=== PATIENT | female | born 1945 ===

== ENCOUNTER 2017-08-11 02:30 | Inpatient (IN) | payer OTHER ==
[2017-08-11] VITALS (14 sets, daily range): BP systolic 117–149; BP diastolic 63–86; PULSE 85–105; TEMP 36.9–38.1; O2SAT 89–100; Ht 157.5 cm; Wt 71.0 kg
[~2017-08-11] VITALS: Ht 157.5 cm; Wt 71.0 kg
[2017-08-11] MEDS ORDERED: ONDANSETRON INJ 2 MG/ML 2 ML VIAL IV PRN (05:30)
[2017-08-11] MEDS ORDERED: POLYETHYLENE (MIRALAX) 17 GM PACK PO PRN (05:30)
[2017-08-11] MEDS ORDERED: ALUMINUM/MAGNESIUM/SIMETH (MAALOX MAX) 30 ML UDC PO PRN (05:30)
[2017-08-11] MEDS ORDERED: ACETAMINOPHEN 325 MG TAB PO PRN (05:30)
[2017-08-11] MEDS ORDERED: MAGNESIUM HYDROXIDE SUSP 30 ML UDC PO PRN (05:30)
[2017-08-11] MEDS ORDERED: NITROGLYCERIN 0.4 MG SL PER TAB CHARGE SL PRN (05:30)
--- NOTE | 2017-08-11 05:32 | History and Physical ---
History & Physical Date & Time of Service: Aug 11, 2017 at 05:32 Chief Complaint: Pneumonia,Sirs Primary Care Physician: No Doctor, Assigned History of Present Illness Source: patient This is a 72 y/o F with multiple comorbidities who presents as a transfer from [facility] for sepsis 2/2 pneumonia. The patient is unable to provide history as she has waxing and waning levels of consciousness. She is not oriented. Chart review from [facility] reveals that patient presented for Dyspnea vial ALS that started this morning. Has accompanying cough, fever and wheezing. I did speak to the daughter over the phone who provided some history. She did say that her mother was initially complaining that there was something wrong with her heart. She gave her nebulizer treatments and she seemed to do okay for a few hours. By the evening, she found her unresponsive in her room and called ALS. Daughter reports that she takes clonipine. At [facility] she was given naloxone and put on bipap after which she was slightly more responsive but not enough to provide any meaningful history. She was also given IV fluids, Nebulizer treatment, Rocephin. She was transferred to [facility] due to lack of bed availability. Reports that her mother smokes a PPD and has a medical history that includes COPD, AAA, CAD s/p CABG, GERD, PUD etc. Pertinent Blood work at [facility]: WBC- 11.9 normal h/h Lactate - 2.9 Cr - 1.8 GFR 29 normal INR normal U/a Drug screen +'ve for barbiturates Flu negative normal troponin tsh- 1.07 Social History Smoking Status: Unknown if Ever Smoked Smokeless Tobacco Use: Unknown Allergies Coded Allergies: Methadone (Verified Allergy, Unknown, ., 08/11/17) Morphine (Verified Allergy, Unknown, ., 08/11/17) Oxycodone (Verified Allergy, Unknown, ., 08/11/17) Ziprasidone (Verified Allergy, Unknown, ., 08/11/17) Home Medications Scheduled Albuterol Hfa (Ventolin Hfa), 2-4 PUFFS INH Q6H Aspirin (Aspirin 81), DAILY Fluticasone Prop/Salmeterol (Advair Diskus 100/50 60 Dose), 1 PUFFS INH BID Gabapentin (Neurontin), 400 MG PO QID Lansoprazole (Prevacid), 30 MG PO DAILY Metoprolol Succ (Toprol Xl) (Toprol-Xl), 25 MG PO DAILY Paroxetine (Paxil), 60 MG PO DAILY Simvastatin (Zocor), 1 TAB PO DAILY Scheduled PRN Zolpidem Tartrate (Zolpidem Tartrate), 1 TAB PO HS PRN for Sleep Miscellaneous Medications Albuterol (Ventolin), 4 MG PO Gzwnztm-Ctlkgohidxhus-Xynaevmx (Excedrin Migraine) Lisinopril (Prinivil), 10 MG PO Review of Systems ROS unobtainable Physical Exam General Appearance: + mild distress, + pertinent finding (awakes to verbal and painful stimuli but doesn't provide meaningful history) Eyes: PERRL, EOMI ENT: hearing grossly normal Neck: no adenopathy, no JVD Respiratory/Chest: + respiratory distress, + rhonchi, + wheezing Cardiovascular: regular rate, rhythm, no edema Abdomen/GI: normal bowel sounds, non tender, soft Extremities/Musculoskelatal: no calf tenderness Neurologic/Psych: + disoriented Diagnostics Laboratory Results Results Past 24 Hours Test 08/11/17 05:24 Range/Units Impression Assessment and Plan This is a 72 y/o F who presents with COPD exacerbation 2/2 pneumonia COPD exacerbation 2/2 pneumonia, sirs IV Rocephin DuoNeb, Advair Solu-medrol 125 and then 80 mg q8 labs pending X-ray pending BC/SC pending CAD s/p CABG, HTN Aspirin, metoprolol, lisinopril, zocor Neuropathy Gabapentin Insomnia Zolpidem DVT Proph Lovenox Code Full - per daughter. Resident Physician Supervision Note: Pt evaluated independently. I discussed the case with the resident and agree with the findings and plan as documented in the note. Any exceptions or clarifications are listed here: 72 y/o F COPD, CAD, heavy smoker - questionable dementia - presenting from [facility] due to bed overflow - diagnosed with PNM and possible COPD exacerbation. She was apparently unresponsive when EMS arrived at her house and responded to a dose of Narcan although there is no recorded history of opiate abuse OE She appears confused and is slow to answer questions S1,2 R Poor air entry into RLL - generally poor air movement NT, ND minimal B/L edema P: We will treat for PNM and presumed COPD exacerbation based on clinical exam Her baseline mentation is unclear and she may have a degree of delirium rather than underlying dementia She will remain on ASA, B jarred and Statin reg her CAD history Pts daughter was contacted on admission Documented By: Tesfaye Au VTE Prophylaxis VTE Risk Assessment Done? Y/N: Yes Risk Level: Moderate
[2017-08-11] MEDS ORDERED: SODIUM CHLORIDE 0.9% 1000ML 1,000 ML IV SCH (06:00)
[2017-08-11] MEDS ORDERED: GABA1CAP5 PO (06:06)
[2017-08-11] MEDS ORDERED: SIMV20TA2 PO (06:06)
[2017-08-11] MEDS ORDERED: ADVIN10/60 INH (06:06)
[2017-08-11] MEDS ORDERED: ALBU4TAB10 PO (06:06)
[2017-08-11] MEDS ORDERED: ASPI-435 (06:06)
[2017-08-11] MEDS ORDERED: ZOLP10TA6 PO (06:06)
[2017-08-11] MEDS ORDERED: PARO1TAB29 PO (06:06)
[2017-08-11] MEDS ORDERED: ASPI-390 (06:06)
[2017-08-11] MEDS ORDERED: LISI10TA PO (06:06)
[2017-08-11] MEDS ORDERED: METO25TA3 PO (06:06)
[2017-08-11] MEDS ORDERED: VNTHFA/IN INH (06:06)
[2017-08-11] MEDS ORDERED: LANS30CA12 PO (06:06)
[2017-08-11 06:23] LABS: BASO % 0.1 %; BASO ABS # 0.02 K/uL (0-0.2); COMPLETE YES; HEMATOCRIT 33.2 % (37-47); IG% 1.1 %; LYMPH % 8.6 %; LYMPH ABS # 1.38 K/uL (1.2-3.4); MEAN CELL VOLUME 98.8 fL (80-100); MEAN CORPUSCULAR HEMOGLOBIN 31.8 pg (25-34); MEAN CORPUSCULAR HGB CONC 32.2 g/dl (32-36); MONO % 7.2 %; PLATELET COUNT 167 K/uL (130-400); RED BLOOD COUNT 3.36 M/uL (4.2-5.4); WHITE BLOOD COUNT 16.07 K/uL (4.8-10.8)
[2017-08-11 06:28] LABS: ARTERIAL BLD GAS O2 SATURATION 98.9 % (90-95); ARTERIAL BLOOD GAS HCO3 25 mmol/L (19-24); ARTERIAL BLOOD GAS PO2 151 mm/Hg (80-95); ARTERIAL BLOOD GAS pH 7.43 (7.35-7.45)
[2017-08-11 06:29] LABS: ALLEN TEST POS (POS); O2 ADMINISTRATION 6L
[2017-08-11] MEDS ORDERED: ZOLPIDEM TARTRATE 10 MG TAB PO PRN (06:30)
[2017-08-11] MEDS ORDERED: INFLUENZA VIRUS QUAD VACCINE 0.5 ML SYR IM. ONE (07:00)
[2017-08-11] MEDS ORDERED: PNEUMOCOCCAL POLYSACCHARIDES 25 MCG/0.5 ML VIAL/SYR IM. ONE (07:00)
[2017-08-11] MEDS ORDERED: INFLUENZA ADMINISTRATION CHARGE ONE (07:00)
[2017-08-11] MEDS ORDERED: PNEUMOCOCCAL ADMINISTRATION CHARGE ONE (07:00)
[2017-08-11 07:02] LABS: BUN/CREATININE RATIO 14.8 (10-20); CALCIUM 8.4 mg/dl (8.5-10.1); CREATININE 1.26 mg/dl (0.60-1.20)
[2017-08-11 07:10] LABS: ALB/GLOB RATIO 0.7 (0.9-2)
[2017-08-11] MEDS ORDERED: METHYLPREDNISOLONE IV 125 MG in SYRINGE 0 ML IV SCH (07:15)
[2017-08-11] MEDS: PAROXETINE 20 MG TAB PO SCH (07:22)
[2017-08-11] MEDS: FLUTICASONE/SALMETEROL 100/50 (ADVAIR) 14 PUFF/1 INHALER INH SCH ×2 (07:22→20:47)
[2017-08-11] MEDS: PANTOprazole SOD 40 MG TAB PO SCH (07:22)
[2017-08-11] MEDS: GABAPENTIN 400 MG CAP PO SCH ×4 (07:22→20:48)
[2017-08-11] MEDS: ASPIRIN 81 MG ECTAB PO SCH (07:22)
[2017-08-11] MEDS: LISINOPRIL 10 MG TAB PO SCH (07:23)
[2017-08-11] MEDS: METOPROLOL SUCC 25MG EXT REL TAB PO SCH (07:23)
[2017-08-11] MEDS: SIMVASTATIN 20 MG TAB PO SCH (07:23)
[2017-08-11] MEDS: ALBUT/IPRATROP 3MG/0.5MG NEB 3 ML VIAL INH SCH ×4 (07:32→19:28)
--- NOTE | 2017-08-11 07:32 | DIAGNOSTIC IMAGING REPORT ---
CHEST ONE VIEW PORTABLE CLINICAL HISTORY: dyspnea COMPARISON STUDY: No previous studies for comparison. FINDINGS: There are postsurgical changes of a midline sternotomy. As a left subclavian dual-chamber central venous pacemaker present. There is diffuse elevation of the interstitium. While likely secondary to pulmonary vascular congestion, chronic interstitial lung disease or an acute interstitial inflammatory process could appear similar.[ IMPRESSION: 1. Diffuse elevation of the interstitium. Clinical correlation in regards to congestive failure is recommended. Electronically signed by: Tyson Hazel M.D. 08/11/2017 7:31 AM Dictated Date/Time: 08/11/2017 7:30 AM
[2017-08-11 07:40] LABS: PROTHROMBIN TIME (PATIENT) 10.7 SECONDS (9.0-12.0)
[2017-08-11] MEDS ORDERED: OPTIRAY 320 IV PRN (08:15)
[2017-08-11] MEDS: ENOXAPARIN 40 MG/0.4 ML SYR SQ SCH (09:03)
--- NOTE | 2017-08-11 09:48 | DIAGNOSTIC IMAGING REPORT ---
ANGIO ABD/PELVIS WITH CONTRAST CLINICAL HISTORY: 72 years-old Female presents with acute generalized abdominal pain and back pain. Concern for possible abdominal aortic aneurysm. COMPARISON STUDY: Chest radiograph of same day TECHNIQUE: Following the IV administration of 93 cc of Optiray 320, CT angiogram of the abdomen and pelvis was performed from the lung bases the proximal femora. Images are reviewed in the axial, sagittal, and coronal planes. 3-D MIPS images are created and assessed. IV contrast was administered without complication. A dose lowering technique was utilized adhering to the principles of ALARA. CT DOSE: 662.39 mGy.cm FINDINGS: CTA: Moderate multichamber cardiac enlargement. Pacer leads are seen overlying the right atrium and right ventricle. Prior median sternotomy. Extensive coronary arterial disease. Dilation of the main pulmonary artery suggests pulmonary arterial hypertension. The imaged ascending thoracic aorta appears unremarkable. There is tortuosity and moderate mixed plaquing of the descending thoracic aorta. There is extensive mixed plaquing of the abdominal aorta and proximal branch vessels. Fusiform infrarenal abdominal aortic aneurysm measures up to 5.9 x 5.5 cm in AP and transverse dimension for a craniocaudal length of 10.4 cm extending to level of the iliac bifurcation. There is fusiform dilation of the right common iliac artery, 1.9 cm with usual dilation of the left common iliac artery measuring 1.8 cm. No evidence of abdominal aortic aneurysm rupture or dissection. Extensive atherosclerosis of the iliac vasculature is noted with areas of high-grade luminal narrowing involving the left external iliac artery as seen on image 319 series 2. High-grade stenosis involves the right internal iliac artery, image 340 series 2. There is occlusion of the right superficial femoral artery at its origin, image 449 series 2. Imaged common femoral and left superficial femoral arteries are patent. Moderate narrowing involves the imaged left superficial femoral artery secondary to mixed plaquing. There is prominent mixed plaquing at the origin of the celiac trunk and origin of the superior mesenteric artery causing less than 50% stenosis. Extensive atherosclerosis involving the bilateral renal arteries is noted with a right renal arterial stent in place which appears patent. Stenosis at the origin of the left renal artery causes 50% luminal narrowing. Stenosis at the origin of the mesenteric artery appears to be at least 50%. CT ABDOMEN/PELVIS: Multifocal patchy groundglass opacities of the imaged lung bases with a thin-walled cyst of the left lower lobe measuring 3.0 x 2.6 cm. Additional scattered thin-walled cysts are noted throughout the bilateral lungs. No pneumatosis or pneumoperitoneum identified. Prior cholecystectomy. Heterogeneous enhancement of the spleen likely secondary to arterial phase. No perisplenic inflammatory change. Pancreas demonstrates calcifications of the uncinate process suggesting prior pancreatitis. Mild chronic atrophy. Adrenal glands are within normal limits. 2.8 cm low attenuating lesion of the interpolar left kidney suggests renal cyst. There is of probable thinning and scarring noted throughout the left kidney. Nonspecific perinephric stranding. Narvaez catheter is noted within a collapsed or bladder. Uterus is unremarkable. No bulky adenopathy identified. Small sliding-type hiatal hernia. There is no bowel obstruction. Extensive stool burden of the rectum and distal sigmoid with stool ball in the rectal vault measuring up to 8 cm transversely. Mild rectal wall thickening is noted with surrounding inflammatory stranding. There is mild wall thickening of the mid transverse colon circumferentially without significant inflammatory stranding. No evidence of acute appendicitis. Prior ventral abdominal wall herniorrhaphy with diastases recti. Mild diffuse body wall edema. The bones appear mildly demineralized. Multilevel degenerative changes of the spine. IMPRESSION: 1. Fusiform aneurysmal dilation of the infrarenal abdominal aorta measures up to 5.9 x 5.5 cm for a craniocaudal length of 10.4 cm extending to level of the iliac bifurcation. Mild fusiform dilation also involves the bilateral common iliac arteries. No evidence of aneurysm rupture or dissection. 2. Extensive atherosclerosis as above with occlusion at the origin of the right superficial femoral artery. Areas of high-grade luminal narrowing are seen within the left external iliac and right internal iliac arteries. 3. Patent right renal arterial stent graft. 50% luminal narrowing of the proximal left renal artery secondary to atheromatous plaquing. 4. Cardiomegaly with patchy groundglass opacities of the lung bases suggesting alveolar pulmonary edema and/or pneumonitis. 5. Fecal impaction with large stool ball in the rectal vault. Rectal wall thickening with surrounding inflammatory stranding suggests stercoral proctitis. Wall thickening of the mid transverse colon suspicious for possible mild colitis. 6. Suggested pulmonary arterial hypertension. 7. Additional findings as above. The above report was generated using voice recognition software. It may contain grammatical, syntax or spelling errors. Electronically signed by: Rod Lantigua M.D. 08/11/2017 9:47 AM Dictated Date/Time: 08/11/2017 9:23 AM
[2017-08-11] MEDS ORDERED: MILK AND MOLASSES ENEMA PR ONE (11:15)
--- NOTE | 2017-08-11 11:27 | Family Medicine Progress Note ---
Progress Note Date of Service Aug 11, 2017. Subjective Pt evaluation today including: conversation w/ patient, physical exam, chart review, review of studies, conversation w/ change consultant, review of inpatient medication list Pain: mild abdominal pain PO Intake: good Voiding: ramirez catheter in place Patient feeling better this morning and is still mildly delirous and has trouble answering questions She was complaining of abdominal pain that radiated to her back. She has not had a bowel movement in a few days and she says she has a history of a AAA. I ordered a stat CT abdomen and pelvis to rule out AAA rupture. Constitutional: + weakness, No fever, No chills, No sweats Respiratory: + cough, + sputum, + wheezing, No shortness of breath Cardiovascular: No chest pain, No edema, No palpitations Abdomen: + pain, + constipation, No nausea, No vomiting, No diarrhea Musculoskeletal: + joint pain, + muscle pain Neurologic: + weakness Medications Current Inpatient Medications Medications (Trade) Dose Ordered Sig/Farhana Route Start Time Stop Time Status Last Admin Dose Admin Sodium Chloride 1,000 ml @ 75 mls/hr [id number] IV 08/11/17 06:00 09/10/17 05:59 08/11/17 06:26 75 MLS/HR Acetaminophen (Tylenol Tab) 650 mg Q4H PRN PO 08/11/17 05:30 09/10/17 05:29 08/11/17 07:32 650 MG Al Hydrox/Mg Hydrox/Simethicone (Maalox Max Susp) 15 ml Q4H PRN PO 08/11/17 05:30 09/10/17 05:29 Magnesium Hydroxide (Milk Of Magnesia Susp) 30 ml Q12H PRN PO 08/11/17 05:30 09/10/17 05:29 Ondansetron HCl (Zofran Inj) 4 mg Q6H PRN IV 08/11/17 05:30 09/10/17 05:29 Nitroglycerin (Nitrostat Tab) 0.4 mg UD PRN SL 08/11/17 05:30 09/10/17 05:29 Polyethylene (Miralax Powder Packet) 17 gm DAILY PRN PO 08/11/17 05:30 09/10/17 05:29 Albuterol/ Ipratropium (Duoneb) 3 ml QIDR INH 08/11/17 08:00 09/10/17 07:59 08/11/17 11:09 3 ML Ceftriaxone Sodium 2000 mg/ Dextrose 70 ml @ 100 mls/hr Q24H IV 08/11/17 19:00 08/18/17 18:59 Aspirin (Ecotrin Tab) 81 mg DAILY PO 08/11/17 09:00 09/10/17 08:59 Salmeterol Xinafoate/ Fluticasone (Advair Diskus 100/50 Inh) 2 puff BID INH 08/11/17 09:00 09/10/17 08:59 Gabapentin (Neurontin Cap) 400 mg QID PO 08/11/17 09:00 09/10/17 08:59 Lisinopril (Zestril Tab) 10 mg DAILY PO 08/11/17 09:00 09/10/17 08:59 Metoprolol Succinate (Toprol Xl Tab) 25 mg DAILY PO 08/11/17 09:00 09/10/17 08:59 Paroxetine HCl (pAXil TAB) 60 mg DAILY PO 08/11/17 09:00 09/10/17 08:59 Simvastatin (Zocor Tab) 20 mg DAILY PO 08/11/17 09:00 09/10/17 08:59 Zolpidem Tartrate (Ambien Tab) 10 mg HS PRN PO 08/11/17 06:30 09/10/17 06:29 Pantoprazole Sodium (Protonix Tab) 40 mg QAM PO 08/11/17 09:00 09/10/17 08:59 Methylprednisolone Sodium Succinate 80 mg/Syringe 1.28 ml @ 1.5 mls/min Q8H IV 08/11/17 14:00 09/10/17 13:59 Enoxaparin Sodium (Lovenox Inj) 40 mg QAM SQ 08/11/17 09:00 09/10/17 08:59 08/11/17 09:03 40 MG Ioversol (Optiray 320) 100 ml UD PRN IV 08/11/17 08:15 08/15/17 08:14 Azithromycin 500 mg/Dextrose 255 ml @ 125 mls/hr 1130 ONCE IV 08/11/17 11:30 08/11/17 13:32 Azithromycin 250 mg/Dextrose 252.5 ml @ 125 mls/hr DAILY IV 08/12/17 09:00 08/19/17 08:59 Miscellaneous Medication (Milk And Molasses Enema) 1 ea ONE ONCE SC 08/11/17 11:15 08/11/17 11:16 UNV Objective Vital Signs Date Time Temp Pulse Resp B/P (MAP) Pulse Ox O2 Delivery O2 Flow Rate FiO2 08/11/17 11:11 88 18 95 Nasal Cannula 3.0 08/11/17 10:46 37.1 85 20 128/74 (92) 99 Nasal Cannula 3.0 08/11/17 09:23 95 127/71 (89) 99 Nasal Cannula 4.0 08/11/17 08:37 36.9 93 117/69 (85) 08/11/17 08:00 Nasal Cannula 4.0 08/11/17 07:34 94 14 100 Mask 6.0 08/11/17 07:32 38.1 99 124/86 (99) 96 Oxymask 6.0 08/11/17 06:18 Nasal Cannula 5.0 Physical Exam General Appearance: WD/WN, no apparent distress, + pertinent finding ( disheveled) Eyes: PERRL ENT: hearing grossly normal, pharynx normal Neck: supple, no JVD, no carotid bruits, trachea midline Respiratory/Chest: + wheezing (diffuse wheezing and poor air movement bilaterally), + pertinent finding (sternotomy scar) Cardiovascular: regular rate, rhythm, no edema, no murmur Abdomen: normal bowel sounds, soft, + tenderness (mild umbilical and suprapubic tenderness, no rebound or guarding), + pertinent finding (AA can be felt in abdomen, non expansatile) Extremities: non-tender, no pedal edema, normal capillary refill Neurologic/Psychiatric: + disoriented Laboratory Results Results Past 24 Hours Test 08/11/17 06:05 08/11/17 06:17 08/11/17 07:11 08/11/17 08:42 Range/Units White Blood Count 16.07 4.8-10.8 K/uL Red Blood Count 3.36 4.2-5.4 M/uL Hemoglobin 10.7 12.0-16.0 g/dL Hematocrit 33.2 37-47 % Mean Corpuscular Volume 98.8 80-100 fL Mean Corpuscular Hemoglobin 31.8 25-34 pg Mean Corpuscular Hemoglobin Concent 32.2 32-36 g/dl Platelet Count 167 130-400 K/uL Mean Platelet Volume 11.0 7.4-10.4 fL Neutrophils (%) (Auto) 83.0 % Lymphocytes (%) (Auto) 8.6 % Monocytes (%) (Auto) 7.2 % Eosinophils (%) (Auto) 0.0 % Basophils (%) (Auto) 0.1 % Neutrophils # (Auto) 13.33 1.4-6.5 K/uL Lymphocytes # (Auto) 1.38 1.2-3.4 K/uL Monocytes # (Auto) 1.16 0.11-0.59 K/uL Eosinophils # (Auto) 0.00 0-0.5 K/uL Basophils # (Auto) 0.02 0-0.2 K/uL RDW Standard Deviation 50.4 36.4-46.3 fL RDW Coefficient of Variation 14.2 11.5-14.5 % Immature Granulocyte % (Auto) 1.1 % Immature Granulocyte # (Auto) 0.18 0.00-0.02 K/uL Sodium Level 136 136-145 mmol/L Potassium Level 5.0 3.5-5.1 mmol/L Chloride Level 105 98-107 mmol/L Carbon Dioxide Level 26 21-32 mmol/L Anion Gap 5.0 3-11 mmol/L Blood Urea Nitrogen 19 7-18 mg/dl Creatinine 1.26 0.60-1.20 mg/dl Est Creatinine Clear Calc Drug Dose 37.1 ml/min Estimated GFR () 48.9 Estimated GFR (Non- 42.2 BUN/Creatinine Ratio 14.8 10-20 Random Glucose 90 70-99 mg/dl Lactic Acid Level 2.5 0.4-2.0 mmol/L Calcium Level 8.4 8.5-10.1 mg/dl Total Bilirubin 0.4 0.2-1 mg/dl Aspartate Amino Transf (AST/SGOT) 25 15-37 U/L Alanine Aminotransferase (ALT/SGPT) 11 12-78 U/L Alkaline Phosphatase 70 45-117 U/L Troponin I 0.628 0-0.045 ng/ml Total Protein 6.3 6.4-8.2 gm/dl Albumin 2.5 3.4-5.0 gm/dl Globulin 3.8 2.5-4.0 gm/dl Albumin/Globulin Ratio 0.7 0.9-2 Arterial Blood pH 7.43 7.35-7.45 Arterial Blood Partial Pressure CO2 39 35-46 mmHg Arterial Blood Partial Pressure O2 151 80-95 mm/Hg Arterial Blood HCO3 25 19-24 mmol/L Arterial Blood Oxygen Saturation 98.9 90-95 % Arterial Blood Base Excess 1.0 -9-1.8 mEq/L Arterial Blood Gas Delivery 6L Nhan Test POS POS Prothrombin Time 10.7 9.0-12.0 SECONDS Prothromb Time International Ratio 1.0 0.9-1.1 Microbiology Results 08/11/17 Blood Culture, Received Pending 08/11/17 Blood Culture, Received Pending 08/11/17 Gram Stain, Ordered Pending 08/11/17 Sputum Culture, Ordered Pending Assessment and Plan This is a 72 y/o F who has sepsis secondary to bilateral interstitial pneumonia COPD exacerbation 2/2 pneumonia, sirs IV Rocephin and added IV azithromycin for atypical coverage DuoNeb, Advair Solu-medrol 125 and then 80 mg q8 Lactic acid 2.5 this morning ABG without hypercapnea CXR showed increased interstitial markings - likely infectious Blood culture and sputum culture pending Fusiform abdominal aneurysm AAA 5.9 x 5.4 cm Hemodynamically stable will obtain records from [facility] Constipation large fecal ball in rectal vault likely contributing to patient abdominal pain milk of mollasses enema CAD s/p CABG, HTN Aspirin, metoprolol, lisinopril, zocor trop 0.628 and trending at 2pm echo ordered patient does not appear to be clinically fluid overloaded IVF on hold currently for concern of fluid overload, will await result of echo before restarting Neuropathy Gabapentin Insomnia Zolpidem DVT Proph Lovenox Code Full per daughter. Resident Physician Supervision Note: I was present with PGY2 Dr. George Sinha during the history and exam. I discussed the case with the resident and agree with the findings and plan as documented in the note. Any exceptions or clarifications are listed here: pt has sepsis not SIRS. Pt c/o cough, wheezing. Mild abdominal pain. Thought it was Tuesday during our visit. Can't remember when last bowel movement was. VSS but febrile thru the night o2 sats stable gen - sickly, but nontoxic and not in distress neck - no JVD mouth - MMM heart - RRR, s1, s2, 2/6 MIGUEL LSB lungs - wheezes b/l, scant rales bases abd - soft, minimal tenderness suprapubic region ext - no edema lactate 2.5 Cr 1.2 CBC w/ leukocytosis A/P: 1. sepsis 2nd to pneumonia 2. metabolic encephalopathy 2nd to #1 3. acute kidney injury 2nd to #1 4. COPD w/ exacerbation 5. abdominal pain - with negative CTA of abd/pelvis the fecal impaction is likely cause 6. AAA - stable, no rupture or dissection add zithromax for atypical coverage for #1 enema for #5 steroids, rocephin, nebs serial labs PT, OT Documented By: Suresh Vincent MD Continued [facility] stay due to: multiple IV medications needed Discharge planning: uncertain
[2017-08-11] MEDS ORDERED: AZITHROMYCIN IV 500 MG in DEXTROSE 5% 250ML 250 ML IV ONE (11:30)
[2017-08-11] MEDS: METHYLPREDNISOLONE IV 80 MG in SYRINGE 0 ML IV SCH ×2 (12:28→21:59)
[2017-08-11] MEDS ORDERED: NURSING VERBAL MED ORDER ONE (15:00)
--- NOTE | 2017-08-11 17:56 | ECHOCARDIOGRAM REPORT ---
*NOTICE TO RECEIVING [employer]PUBL[employer] AGENCY This information is strictly Confidential and protected under [place] law. [place] law prohibits you from making any further disclosure of this information unless further disclosure is expressly permitted by the written consent of the person to whom it pertains or is authorized by law. A general authorization for the release of medical or other information is not sufficient for this purpose. Hospital accepts no responsibility if the information is made available to any other person, INCLUDING THE PATIENT. Interpretation Summary * Name: TYLER RODRÍGUEZ Study Date: 08/11/2017 02:19 PM BP: 128/74 mmHg * Patient Location: C.2T\S\S241\S\1 HR: 90 * : 1945 (M/d/yyyy) Gender: Female Height: 62 in * Age: 72 yrs Ethnicity: ND Weight: 159 lb * Ordering Physician: George Sinha * Referring Physician: Mckay Ortez * Performed By: Anika Hernandez RCS * * Reason For Study: ELEVATED TROPONIN / INCREASED INTERSTITIAL FLUID * BSA: 1.7 m2 * -- Conclusions -- * There is mild concentric left ventricular hypertrophy. * Left ventricular systolic function is normal. * Diastolic dysfunction, Grade II (pseudonormalization pattern). * The left atrium is severely dilated. * Mild aortic regurgitation. * Right ventricular systolic pressure is elevated at 40-50mmHg. * The inferior vena cava is mildly dilated. Procedure Details * A complete two-dimensional transthoracic echocardiogram was performed (2D, M-mode, Doppler and color flow Doppler). Left Ventricle * The left ventricle is normal in size. * There is mild concentric left ventricular hypertrophy. * Left ventricular systolic function is normal. * Ejection Fraction = 60-65%. * Diastolic dysfunction, Grade II (pseudonormalization pattern). * The left ventricular wall motion is normal. Right Ventricle * The right ventricle is normal in size and function. Atria * The left atrium is severely dilated. * Right atrial size is normal. * Echodensity suggestive of pacing lead versus calcified Chiari network work Mitral Valve * The mitral valve anatomy is normal. * Significant mitral regurgitation is absent. Tricuspid Valve * The tricuspid valve is not well visualized, but is grossly normal. * There is mild tricuspid regurgitation. * Right ventricular systolic pressure is elevated at 40-50mmHg. Aortic Valve * The aortic valve is normal in structure and function. * No hemodynamically significant valvular aortic stenosis. * Mild aortic regurgitation. Great Vessels * The aortic root is normal size. Pericardium/Pleural * There is no pericardial effusion. Great Vessels * The inferior vena cava is mildly dilated. MMode 2D Measurements and Calculations IVSd 1.6 cm IVSs 1.9 cm LVIDd 4.0 cm LVIDs 2.5 cm LVPWd 1.5 cm LVPWs 1.8 cm IVS/LVPW 1.1 FS 37.1 % EDV(Teich) 70.5 ml ESV(Teich) 22.9 ml EF(Teich) 67.6 % EDV(cubed) 64.5 ml ESV(cubed) 16.1 ml EF(cubed) 75.1 % % IVS thick 18.4 % % LVPW thick 24.7 % LV mass(C)d 240.0 grams LV mass(C)dI 138.4 grams/m\S\2 LV mass(C)s 188.2 grams LV mass(C)sI 108.5 grams/m\S\2 SV(Teich) 47.6 ml SI(Teich) 27.5 ml/m\S\2 SV(cubed) 48.5 ml SI(cubed) 27.9 ml/m\S\2 Ao root diam 2.8 cm Ao root area 6.3 cm\S\2 LA dimension 5.8 cm LA/Ao 2.0 LVOT diam 2.0 cm LVOT area 3.3 cm\S\2 LVAd ap4 30.2 cm\S\2 LVLd ap4 7.5 cm EDV(MOD-sp4) 97.9 ml EDV(sp4-el) 102.7 ml LVAs ap4 17.8 cm\S\2 LVLs ap4 6.5 cm ESV(MOD-sp4) 42.2 ml ESV(sp4-el) 41.5 ml EF(MOD-sp4) 56.9 % EF(sp4-el) 59.6 % LVAd ap2 27.4 cm\S\2 LVLd ap2 7.2 cm EDV(MOD-sp2) 83.8 ml EDV(sp2-el) 88.9 ml LVAs ap2 18.4 cm\S\2 LVLs ap2 6.5 cm ESV(MOD-sp2) 45.6 ml ESV(sp2-el) 44.5 ml EF(MOD-sp2) 45.6 % EF(sp2-el) 49.9 % LVLd %diff -4.63 % EDV(MOD-bp) 91.3 ml LVLs %diff -0.19 % ESV(MOD-bp) 43.4 ml EF(MOD-bp) 52.4 % SV(MOD-sp4) 55.8 ml SI(MOD-sp4) 32.2 ml/m\S\2 SV(MOD-sp2) 38.2 ml SI(MOD-sp2) 22.0 ml/m\S\2 SV(MOD-bp) 47.9 ml SI(MOD-bp) 27.6 ml/m\S\2 SV(sp4-el) 61.2 ml SI(sp4-el) 35.3 ml/m\S\2 SV(sp2-el) 44.4 ml SI(sp2-el) 25.6 ml/m\S\2 Doppler Measurements and Calculations MV E max yoan 125.6 cm/sec MV A max yoan 93.3 cm/sec MV E/A 1.3 MV P1/2t max yoan 132.0 cm/sec MV P1/2t 48.4 msec MVA(P1/2t) 4.5 cm\S\2 MV dec slope 798.7 cm/sec\S\2 MV dec time 0.18 sec Ao V2 max 226.0 cm/sec Ao max PG 20.4 mmHg Ao max PG (full) 9.8 mmHg EDITH(V,A) 2.4 cm\S\2 EDITH(V,D) 2.4 cm\S\2 LV V1 max PG 10.6 mmHg LV V1 max 162.8 cm/sec PA V2 max 96.6 cm/sec PA max PG 3.7 mmHg PI max yoan 206.2 cm/sec PI max PG 17.0 mmHg PI dec slope 164.8 cm/sec\S\2 PI P1/2t 366.6 msec TR max yoan 281.0 cm/sec
[2017-08-11] MEDS: CEFTRIAXONE SOD INJ 2,000 MG in DEXTROSE 5% 50ML 50 ML IV SCH (18:45)
[2017-08-11 22:10] LABS: INFLUENZA A PCR Neg for Influ A (NEG); INFLUENZA B PCR Neg for Influ B (NEG)
[2017-08-12] VITALS (13 sets, daily range): BP systolic 156–178; BP diastolic 76–92; PULSE 79–97; TEMP 36.8–37.1; O2SAT 93–100
[2017-08-12] MEDS: METHYLPREDNISOLONE IV 80 MG in SYRINGE 0 ML IV SCH ×3 (06:27→21:55)
[2017-08-12 06:32] LABS: COMPLETE YES; HEMATOCRIT 32.5 % (37-47); IG% 0.3 %; LYMPH % 6.8 %; LYMPH ABS # 0.91 K/uL (1.2-3.4); MEAN CELL VOLUME 97.3 fL (80-100); MEAN CORPUSCULAR HEMOGLOBIN 32.6 pg (25-34); MEAN CORPUSCULAR HGB CONC 33.5 g/dl (32-36); MEAN PLATELET VOLUME 10.9 fL (7.4-10.4); MONO % 3.4 %; NEUT % 89.5 %; PLATELET COUNT 181 K/uL (130-400); RED BLOOD COUNT 3.34 M/uL (4.2-5.4); WHITE BLOOD COUNT 13.39 K/uL (4.8-10.8)
[2017-08-12] MEDS: ALBUT/IPRATROP 3MG/0.5MG NEB 3 ML VIAL INH SCH ×4 (06:59→19:04)
[2017-08-12 07:03] LABS: BUN/CREATININE RATIO 24.1 (10-20); CALCIUM 9.2 mg/dl (8.5-10.1); CREATININE 1.04 mg/dl (0.60-1.20); POTASSIUM 4.4 mmol/L (3.5-5.1)
[2017-08-12 07:06] LABS: ALB/GLOB RATIO 0.6 (0.9-2)
[2017-08-12] MEDS: LISINOPRIL 10 MG TAB PO SCH (08:06)
[2017-08-12] MEDS: FLUTICASONE/SALMETEROL 100/50 (ADVAIR) 14 PUFF/1 INHALER INH SCH ×2 (08:06→19:57)
[2017-08-12] MEDS: PAROXETINE 20 MG TAB PO SCH (08:07)
[2017-08-12] MEDS: ASPIRIN 81 MG ECTAB PO SCH (08:07)
[2017-08-12] MEDS: METOPROLOL SUCC 25MG EXT REL TAB PO SCH (08:07)
[2017-08-12] MEDS: PANTOprazole SOD 40 MG TAB PO SCH (08:07)
[2017-08-12] MEDS: GABAPENTIN 400 MG CAP PO SCH ×4 (08:08→19:57)
[2017-08-12] MEDS: SIMVASTATIN 20 MG TAB PO SCH (08:08)
[2017-08-12] MEDS: ENOXAPARIN 40 MG/0.4 ML SYR SQ SCH (08:09)
[2017-08-12] MEDS: AZITHROMYCIN IV 250 MG in DEXTROSE 5% 250ML 250 ML IV SCH (08:12)
--- NOTE | 2017-08-12 08:54 | Family Medicine Progress Note ---
Progress Note Date of Service Aug 12, 2017. Subjective Pt evaluation today including: conversation w/ patient Patient opens eyes and communicates but does not know where or who she is. Denies have a BM yesterday though received an enema and passed stool twice. Additional Comments: Unable to obtain ROS due to altered mental status Medications Current Inpatient Medications Medications (Trade) Dose Ordered Sig/Farhana Route Start Time Stop Time Status Last Admin Dose Admin Sodium Chloride 1,000 ml @ 75 mls/hr [id number] IV 08/11/17 06:00 09/10/17 05:59 Future Hold 08/11/17 06:26 75 MLS/HR Acetaminophen (Tylenol Tab) 650 mg Q4H PRN PO 08/11/17 05:30 09/10/17 05:29 08/11/17 07:32 650 MG Al Hydrox/Mg Hydrox/Simethicone (Maalox Max Susp) 15 ml Q4H PRN PO 08/11/17 05:30 09/10/17 05:29 Magnesium Hydroxide (Milk Of Magnesia Susp) 30 ml Q12H PRN PO 08/11/17 05:30 09/10/17 05:29 Ondansetron HCl (Zofran Inj) 4 mg Q6H PRN IV 08/11/17 05:30 09/10/17 05:29 Nitroglycerin (Nitrostat Tab) 0.4 mg UD PRN SL 08/11/17 05:30 09/10/17 05:29 Polyethylene (Miralax Powder Packet) 17 gm DAILY PRN PO 08/11/17 05:30 09/10/17 05:29 Albuterol/ Ipratropium (Duoneb) 3 ml QIDR INH 08/11/17 08:00 09/10/17 07:59 08/12/17 06:59 3 ML Ceftriaxone Sodium 2000 mg/ Dextrose 70 ml @ 100 mls/hr Q24H IV 08/11/17 19:00 08/18/17 18:59 08/11/17 18:45 100 MLS/HR Aspirin (Ecotrin Tab) 81 mg DAILY PO 08/11/17 09:00 09/10/17 08:59 08/12/17 08:07 81 MG Salmeterol Xinafoate/ Fluticasone (Advair Diskus 100/50 Inh) 2 puff BID INH 08/11/17 09:00 09/10/17 08:59 08/12/17 08:06 2 PUFF Gabapentin (Neurontin Cap) 400 mg QID PO 08/11/17 09:00 09/10/17 08:59 08/12/17 08:08 400 MG Lisinopril (Zestril Tab) 10 mg DAILY PO 08/11/17 09:00 09/10/17 08:59 08/12/17 08:06 10 MG Metoprolol Succinate (Toprol Xl Tab) 25 mg DAILY PO 08/11/17 09:00 09/10/17 08:59 08/12/17 08:07 25 MG Paroxetine HCl (pAXil TAB) 60 mg DAILY PO 08/11/17 09:00 09/10/17 08:59 08/12/17 08:07 60 MG Simvastatin (Zocor Tab) 20 mg DAILY PO 08/11/17 09:00 09/10/17 08:59 08/12/17 08:08 20 MG Zolpidem Tartrate (Ambien Tab) 10 mg HS PRN PO 08/11/17 06:30 09/10/17 06:29 Pantoprazole Sodium (Protonix Tab) 40 mg QAM PO 08/11/17 09:00 09/10/17 08:59 08/12/17 08:07 40 MG Methylprednisolone Sodium Succinate 80 mg/Syringe 1.28 ml @ 1.5 mls/min Q8H IV 08/11/17 14:00 09/10/17 13:59 08/12/17 06:27 1.5 MLS/MIN Enoxaparin Sodium (Lovenox Inj) 40 mg QAM SQ 08/11/17 09:00 09/10/17 08:59 08/12/17 08:09 40 MG Ioversol (Optiray 320) 100 ml UD PRN IV 08/11/17 08:15 08/15/17 08:14 Azithromycin 250 mg/Dextrose 252.5 ml @ 125 mls/hr DAILY IV 08/12/17 09:00 08/19/17 08:59 08/12/17 08:12 125 MLS/HR Objective Vital Signs Date Time Temp Pulse Resp B/P (MAP) Pulse Ox O2 Delivery O2 Flow Rate FiO2 08/12/17 08:15 37.0 91 19 173/89 (117) 96 Nasal Cannula 2.0 08/12/17 08:00 95 Nasal Cannula 2.0 08/12/17 06:59 82 16 95 Nasal Cannula 2.0 08/12/17 03:00 96 Nasal Cannula 3.0 08/12/17 02:59 36.9 93 19 156/79 (104) 96 Nasal Cannula 2.0 08/11/17 23:31 36.9 93 20 131/69 (89) 96 Nasal Cannula 2.0 08/11/17 23:30 94 Nasal Cannula 3.0 08/11/17 20:00 96 Nasal Cannula 3.0 08/11/17 19:45 37.0 105 19 118/63 (81) 96 Nasal Cannula 2.0 08/11/17 19:29 93 16 89 Room Air 08/11/17 16:00 100 Nasal Cannula 3.0 08/11/17 15:16 87 16 100 Nasal Cannula 3.0 08/11/17 15:10 37.0 88 16 149/70 (96) 100 Nasal Cannula 3.0 08/11/17 12:00 Nasal Cannula 4.0 08/11/17 11:11 88 18 95 Nasal Cannula 3.0 08/11/17 10:46 37.1 85 20 128/74 (92) 99 Nasal Cannula 3.0 08/11/17 09:23 95 127/71 (89) 99 Nasal Cannula 4.0 Physical Exam General Appearance: WD/WN, no apparent distress, + thin Eyes: normal inspection, PERRL, + pertinent finding (large pupils) ENT: hearing grossly normal Neck: supple, no JVD Respiratory/Chest: lungs clear, normal breath sounds, no respiratory distress Cardiovascular: regular rate, rhythm, no murmur Abdomen: normal bowel sounds, non tender, soft Extremities: non-tender, normal inspection, no pedal edema Neurologic/Psychiatric: alert, + disoriented Skin: no rash Laboratory Results Last 24 Hours Test 08/11/17 14:08 08/11/17 20:30 08/12/17 06:23 Troponin I 0.298 ng/ml Influenza Type A (RT-PCR) Neg for Influ A Influenza Type A Antigen Neg for Influ A Influenza Type B Antigen Neg for Influ B Influenza Type B (RT-PCR) Neg for Influ B White Blood Count 13.39 K/uL Red Blood Count 3.34 M/uL Hemoglobin 10.9 g/dL Hematocrit 32.5 % Mean Corpuscular Volume 97.3 fL Mean Corpuscular Hemoglobin 32.6 pg Mean Corpuscular Hemoglobin Concent 33.5 g/dl Platelet Count 181 K/uL Mean Platelet Volume 10.9 fL Neutrophils (%) (Auto) 89.5 % Lymphocytes (%) (Auto) 6.8 % Monocytes (%) (Auto) 3.4 % Eosinophils (%) (Auto) 0.0 % Basophils (%) (Auto) 0.0 % Neutrophils # (Auto) 11.98 K/uL Lymphocytes # (Auto) 0.91 K/uL Monocytes # (Auto) 0.46 K/uL Eosinophils # (Auto) 0.00 K/uL Basophils # (Auto) 0.00 K/uL RDW Standard Deviation 50.4 fL RDW Coefficient of Variation 14.2 % Immature Granulocyte % (Auto) 0.3 % Immature Granulocyte # (Auto) 0.04 K/uL Sodium Level 139 mmol/L Potassium Level 4.4 mmol/L Chloride Level 107 mmol/L Carbon Dioxide Level 27 mmol/L Anion Gap 5.0 mmol/L Blood Urea Nitrogen 25 mg/dl Creatinine 1.04 mg/dl Est Creatinine Clear Calc Drug Dose 44.5 ml/min Estimated GFR () 61.7 Estimated GFR (Non- 53.3 BUN/Creatinine Ratio 24.1 Random Glucose 110 mg/dl Lactic Acid Level 0.8 mmol/L Calcium Level 9.2 mg/dl Total Bilirubin 0.3 mg/dl Aspartate Amino Transf (AST/SGOT) 19 U/L Alanine Aminotransferase (ALT/SGPT) 11 U/L Alkaline Phosphatase 64 U/L Total Protein 6.5 gm/dl Albumin 2.5 gm/dl Globulin 4.0 gm/dl Albumin/Globulin Ratio 0.6 Assessment and Plan 72 yo F, found unresponsive at home by daughter, found to be septic from community-acquired pneumonia. Sepsis secondary to community-acquired PNA on background of COPD - Day 3 of IV Rocephin, day 2 of IV azithromycin to cover atypicals - Day 3 of IV Solu-Medrol, now at 80mg q8h for likely COPD exacerbation as well - Lactate now 0.8 from 2.5 - Blood cultures pending - Sputum culture cancelled - Other cx obtained from [facility] - will check w/them but likely still pending Acute metabolic encephalopathy in setting of sepsis and pneumonia - Provide frequent re-orientation - Transfer to Med/Surg, preferably bed with more windows and natural light - AVOID excessive benzo use - Will continue to monitor Acute kidney failure - Creatinine improving, was likely pre-renal - Continue to monitor COPD exacerbation - Remains on steroids, as above - Remains on Advair and Duonebs - ABG completed yesterday, pt is not a chronic retainer Constipation - Received milk of mag enema yesterday, had large BM, though pt does not recall - Daily Miralax Chronic insomnia w/Ambien use - Reviewed PDMP - pt has been getting Ambien 10mg to take daily for a while, as well as Percocet 10-325 - Will continue Ambien 5mg qHS Fusiform abdominal aortic aneurysm - Stable, continue to monitor VTE - Lovenox Code status: Full Dispo: Transfer to Med/Surg today, ?Could potentially need rehab eventually, will get PT/OT involved Resident Physician Supervision Note: I was present with PGY3 Dr. Martha Lara during the history and exam. I discussed the case with the resident and agree with the findings and plan as documented in the note. Any exceptions or clarifications are listed here: none. Pt awake with eyes open during my visit and will follow commands but does not know where she is or why she is in the hospital. Unable to obtain any meaningful ROS. VSS, now afebrile o2 sats stable gen - NAD, confused eyes - pupils dilated but reactive b/l neck - no JVD mouth - MMM heart - RRR, s1, s2, 2/6 MIGUEL LSB lungs - wheezes b/l abd - soft, NT, ND, BS+ ext - no edema neuro - strength 5/5 x 4 exts; no facial droop; ?mild tremor vs mild asterixis of arms/hands wbc 13 Cr 1 lactate now normal A/P: 1. sepsis 2nd to pneumonia - by way of labs clinically improving; clinically stable as well with resolution of fever; cont rocephin/zithromax 2. metabolic encephalopathy 2nd to #1 - ongoing; cannot exclude another cause of her ongoing encephalopathy 3. acute kidney injury 2nd to #1 - resolved 4. COPD w/ exacerbation - improved/stable; cont steroids, hopefully wean tomorrow 5. abdominal pain - resolved; was likely due to constipation 6. AAA - stable, no rupture or dissection I am concerned by her ongoing delirium I reviewed all of the records that came with her from [facility] She did NOT receive a CT head during her ED evaluation there Will check ammonia level Consider CT head vs MRI brain if delirium persists Consider recheck of VBG (r/o hypercarbia), b12, etc TSH at [facility] was normal I have not seen any family during our visits; will have resident team try to contact family PT, OT evals will most likely need rehab Documented By: Suresh Vincent MD Resident Tracking Resident Involvement: Resident Care Provided Care Provided: Adult Hospital Medicine
--- NOTE | 2017-08-12 11:25 | Clinical Documentation Query ---
QUERY 1 OF [address] BOOGIE, In your clinical opinion is this patient being managed for: ( x ) Metabolic encephalopathy in the setting of sepsis and pneumonia ( ) Not Agree ( ) Other explanation of clinical findings (Please Explain) ( ) Unable to determine (Please Define) ( ) Need to Discuss The medical record reflects the following clinical findings, treatment, and risk factors. Clinical Indicators: 72 yo female presenting to outside hospital with altered mental status, fever and wheezing. Cr 1.8 at time of presentation, lactic acid 2.9. Noted upon arrival to [facility] that pt still having waxing and waning levels of consciousness and disorientation. Treatment: IV fluids, IV rocephin, IV azithromycin, O2 support, nebs, tele monitoring Risk Factors:sepsis, pneumonia, UMER QUERY 2 OF 2 In your clinical opinion is this patient being managed for: ( x ) Acute kidney failure ( ) Not Agree ( ) Other explanation of clinical findings (Please Explain) ( ) Unable to determine (Please Define) ( ) Need to Discuss The medical record reflects the following clinical findings, treatment, and risk factors. Clinical Indicators: Initial Cr 1.8 at [place] and has been trending down slowly 1.26/1.04 at [facility] Treatment: IV fluids, IV rocephin, IV azithromycin, O2 support, nebs, pending blood cx Risk Factors: sepsis, pneumonia, age, COPD, CAD Please clarify and document your clinical opinion in the progress notes and discharge summary. Terms such as "probable", "suspected", "likely", "questionable", "possible", or "still to be ruled out" are acceptable. IF IN AGREEMENT, YOU MUST DOCUMENT ABOVE DIAGNOSTIC STATEMENT IN DAILY PROGRESS NOTES AND DISCHARGE SUMMARY. This document is not part of the patient's record. Thank You, Jing Sommer, RN [phone]
--- NOTE | 2017-08-12 11:30 | Clinical Documentation Query ---
QUERY 1 OF [address] WHITE, In your clinical opinion is this patient being managed for: ( x) Metabolic encephalopathy in the setting of sepsis and pneumonia ( ) Not Agree ( ) Other explanation of clinical findings (Please Explain) ( ) Unable to determine (Please Define) ( ) Need to Discuss The medical record reflects the following clinical findings, treatment, and risk factors. Clinical Indicators: 72 yo female presenting to outside hospital with altered mental status, fever and wheezing. Cr 1.8 at time of presentation, lactic acid 2.9. Noted upon arrival to [facility] [place] that pt still having waxing and waning levels of consciousness and disorientation. Treatment: IV fluids, IV rocephin, IV azithromycin, O2 support, nebs, tele monitoring Risk Factors:sepsis, pneumonia, UMER QUERY 2 OF 2 In your clinical opinion is this patient being managed for: ( x ) Acute kidney failure ( ) Not Agree ( ) Other explanation of clinical findings (Please Explain) ( ) Unable to determine (Please Define) ( ) Need to Discuss The medical record reflects the following clinical findings, treatment, and risk factors. Clinical Indicators: Initial Cr 1.8 at [place] and has been trending down slowly 1.26/1.04 at [facility] [place] Treatment: IV fluids, IV rocephin, IV azithromycin, O2 support, nebs, pending blood cx Risk Factors: sepsis, pneumonia, age, COPD, CAD Please clarify and document your clinical opinion in the progress notes and discharge summary. Terms such as "probable", "suspected", "likely", "questionable", "possible", or "still to be ruled out" are acceptable. IF IN AGREEMENT, YOU MUST DOCUMENT ABOVE DIAGNOSTIC STATEMENT IN DAILY PROGRESS NOTES AND DISCHARGE SUMMARY. This document is not part of the patient's record. Thank You, Jing Sommer RN [phone]
[2017-08-12] MEDS: CEFTRIAXONE SOD INJ 2,000 MG in DEXTROSE 5% 50ML 50 ML IV SCH (19:55)
[2017-08-12] MEDS: ZOLPIDEM TARTRATE 5 MG TAB PO SCH (21:55)
[2017-08-13] VITALS (10 sets, daily range): BP systolic 159–178; BP diastolic 78–85; PULSE 75–87; TEMP 36.7–37.4; O2SAT 90–100
[2017-08-13] MEDS: METHYLPREDNISOLONE IV 80 MG in SYRINGE 0 ML IV SCH ×2 (06:18→14:16)
[2017-08-13] MEDS: ALBUT/IPRATROP 3MG/0.5MG NEB 3 ML VIAL INH SCH ×4 (07:04→19:28)
[2017-08-13 07:53] LABS: BASO % 0.1 %; BASO ABS # 0.01 K/uL (0-0.2); COMPLETE YES; EOS % 0.1 %; HEMATOCRIT 35.5 % (37-47); IG% 0.5 %; LYMPH % 8.4 %; LYMPH ABS # 1.04 K/uL (1.2-3.4); MEAN CORPUSCULAR HEMOGLOBIN 32.8 pg (25-34); MEAN CORPUSCULAR HGB CONC 33.8 g/dl (32-36); MEAN PLATELET VOLUME 10.8 fL (7.4-10.4); MONO % 4.3 %; NEUT % 86.6 %; PLATELET COUNT 244 K/uL (130-400); RED BLOOD COUNT 3.66 M/uL (4.2-5.4); WHITE BLOOD COUNT 12.36 K/uL (4.8-10.8)
[2017-08-13] MEDS: FLUTICASONE/SALMETEROL 100/50 (ADVAIR) 14 PUFF/1 INHALER INH SCH ×2 (07:53→19:38)
[2017-08-13] MEDS: GABAPENTIN 400 MG CAP PO SCH ×4 (07:54→19:38)
[2017-08-13] MEDS: ASPIRIN 81 MG ECTAB PO SCH (07:54)
[2017-08-13] MEDS: PANTOprazole SOD 40 MG TAB PO SCH (07:55)
[2017-08-13] MEDS: METOPROLOL SUCC 25MG EXT REL TAB PO SCH (07:55)
[2017-08-13] MEDS: PAROXETINE 20 MG TAB PO SCH (07:55)
[2017-08-13] MEDS: SIMVASTATIN 20 MG TAB PO SCH (07:55)
[2017-08-13] MEDS: LISINOPRIL 10 MG TAB PO SCH ×2 (07:56→19:42)
[2017-08-13] MEDS: ENOXAPARIN 40 MG/0.4 ML SYR SQ SCH (07:56)
[2017-08-13 08:26] LABS: BUN/CREATININE RATIO 33.3 (10-20); CALCIUM 9.4 mg/dl (8.5-10.1); CREATININE 1.14 mg/dl (0.60-1.20); POTASSIUM 3.9 mmol/L (3.5-5.1)
[2017-08-13 08:29] LABS: ALB/GLOB RATIO 0.7 (0.9-2)
[2017-08-13] MEDS: AZITHROMYCIN IV 250 MG in DEXTROSE 5% 250ML 250 ML IV SCH (09:19)
--- NOTE | 2017-08-13 11:07 | Family Medicine Progress Note ---
Progress Note Date of Service Aug 13, 2017. Subjective Pt evaluation today including: conversation w/ patient, physical exam, chart review, lab review The patient was seen and examined at bedside. No acute overnight events. Patient is back on 2LNC. She doesn't know her last name, where she is or the year. She does know the name of her daughter (Shruthi) and knows she has a . She says yes when asked if the lives at [facility]. Patient is resting comfortably in bed. She has no complaints. Nurse reported she was eating the styrofoam on the tray and needed to be fed. Narvaez in place draining orange urine. Plan of care was described to the patient and all questions were answered. ROS: All negative, unsure how reliable due to pt's baseline medical condition. Constitutional: No fever, No chills ENT: No hearing loss Respiratory: No cough, No sputum Abdomen: No pain, No nausea, No vomiting, No diarrhea Female : No dysuria Skin: No rash Objective Physical Exam General Appearance: WD/WN, no apparent distress Eyes: PERRL Neck: supple, no adenopathy Respiratory/Chest: chest non-tender, no respiratory distress, no accessory muscle use, + pertinent finding (rhonchi posteriorly worse in lower lung valentino. ) Cardiovascular: regular rate, rhythm, no edema, no gallop, no JVD, no murmur Abdomen: + pertinent finding (slight gaurding appreciated, ) Extremities: normal range of motion, non-tender, normal inspection, no pedal edema, no calf tenderness Neurologic/Psychiatric: no motor/sensory deficits, alert, normal mood/affect, + pertinent finding (Not oriented to person (last name), place (city, building) , or time (day, month or year).) Skin: no rash Assessment and Plan 72F with a PMHx of COPD 2/2 to smoking, AAA, CAD s/p CABG, GERD, PUD, found unresponsive at home by daughter, was transferred from [place] due to bed availability. On admission WBC and Lactate were elevated. We are treated CAP/ COPD exacerbation with Azithromycin, Rocephin and IV Solumedrol 80mg TID. On hospital Day #3 patient continues to be encephalopathic. Sepsis secondary to community-acquired PNA on background of COPD - Pt still requires O2 and lungs are rhonchorous. - s/p 4 Days of Rocephin, Day 3 of IV azithromycin to cover atypicals, broadening to Unasyn today. - Reduce SoluMedrol to 60mg IV BID from 80mg IV TID. s/p 4 days. - Lactate now 0.8 from 2.5 - Blood cultures - No Growth to Date. - Called [facility] - their BC were neg x 48 hours and UA was normal and not sent for culture. Acute metabolic encephalopathy in setting of sepsis and pneumonia - Provide frequent re-orientation. - Transfer to Med/Surg, preferably bed with more windows and natural light. - AVOID excessive benzo use. - Will continue to monitor. - CT Head WNL. - UA Culture pending. - B12 and Folate WNL - Will follow up Vit B1. Possible Colitis on CT - Pt has been having hard BM in the hospital. - Changing Abx to Unasyn and Azithromycin. Acute kidney failure - Creatinine improving, was likely pre-renal - Continue to monitor COPD exacerbation - Steroids as above. - Remains on Advair and Duonebs - ABG completed, pt is not a chronic retainer Constipation - Received milk of mag enema yesterday, had large BM, though pt does not recall - Daily Miralax Chronic insomnia w/Ambien use - Reviewed PDMP - pt has been getting Ambien 10mg to take daily for a while, as well as Percocet 10-325 - Will continue Ambien 5mg qHS Fusiform abdominal aortic aneurysm - Stable, continue to monitor VTE - Lovenox Dispo: MED SURG, ordered PT and OT, will need placement most likely. Shruthi : (home ) [phone], (cell) [phone] (attempted to reach Shruthi on 08/13/2017 at 11am and there was no answer on either phone) Nurse spoke with daughter, per daughter the patient is "forgetful". FULL CODE Resident Physician Supervision Note: I was present with PGY2 Dr. Christopher Brito during the history and exam. I discussed the case with the resident and agree with the findings and plan as documented in the note. Any exceptions or clarifications are listed here: none. Pt much more awake/alert during our bedside rounds today. Conversing, answering questions - although still confused and doesn't know she is in the hospital. Denies any abd pain, chest pain, dyspnea. VSS, now afebrile o2 sats stable gen - NAD, more awake/alert today eyes - pupils dilated but reactive b/l; lens implants b/l neck - no JVD mouth - MMM heart - RRR, s1, s2, 2/6 MIGUEL LSB lungs - wheezes b/l - improved abd - soft, NT, ND, BS+ ext - no edema neuro - strength 5/5 x 4 exts; no facial droop A/P: 1. sepsis 2nd to pneumonia - improved. Cont abx for pneumonia - changed rocephin to unasyn today to add anaerobe coverage for possible stericolitis. 2. metabolic encephalopathy 2nd to #1 - ongoing but improved today. CT head w / atrophy only. Does she have underlying dementia with superimposed delirium? other metabolic w/u - ammonia, b12, etc - all normal; thiamine level pending 3. acute kidney injury 2nd to #1 - resolved 4. COPD w/ exacerbation - improved/stable; cont steroids but wean today 5. abdominal pain - resolved; was likely due to constipation; Dr. Brito performed DONNA - no further impaction 6. AAA - stable, no rupture or dissection PT, OT evals will most likely need rehab Dr. Funes attempted to contact daughter today w/o success Documented By: Suresh Vincent MD Resident Involvement: Resident Care Provided Care Provided: Adult Hospital Medicine
--- NOTE | 2017-08-13 12:41 | DIAGNOSTIC IMAGING REPORT ---
HEAD CT NONCONTRAST CT DOSE: 537.48 mGy.cm HISTORY: Not oriented to person place or time, baseline is normal TECHNIQUE: Multiaxial CT images of the head were performed without the use of intravenous contrast. Automated exposure control was utilized for this study. A dose lowering technique was utilized adhering to the principles of ALARA. Comparison: None. Findings: The paranasal sinuses and mastoid air cells are clear. The calvarium and skull base are intact. There is no mass, hematoma, midline shift, acute infarct. White matter hypodensity is nonspecific but suggestive of microvascular ischemic change. The ventricles and sulci demonstrate mild age-related involutional changes. Impression: No acute intracranial abnormality. Atrophy and microvascular ischemic changes. Electronically signed by: Demetri Maldonado M.D. 08/13/2017 12:40 PM Dictated Date/Time: 08/13/2017 12:36 PM
[2017-08-13 14:01] LABS: URINE APPEARANCE TURBID (CLEAR); URINE BILIRUBIN NEG (NEG); URINE COLOR YELLOW; URINE EPITHELIAL CELL AUTO >30 /lpf (0-5); URINE NITRITE NEG (NEG); URINE SPECIFIC GRAVITY 1.025 (1.000-1.030); UROBILINOGEN NEG (NEG); ZZUR CULT IF INDIC CLEAN CATCH YES
[2017-08-13 14:16] LABS: MANUAL MICROSCOPIC REQUIRED? NO; REVIEW REQ? YES
[2017-08-13] MEDS: AMPICILLIN/SULBACTAM SOD INJ 3,000 MG in SODIUM CHLORIDE 0.9% 100ML 100 ML IV SCH ×2 (14:16→19:38)
[2017-08-14] VITALS (12 sets, daily range): BP systolic 152–188; BP diastolic 73–102; PULSE 63–82; TEMP 36.8–37.1; O2SAT 87–97
[2017-08-14] MEDS: AMPICILLIN/SULBACTAM SOD INJ 3,000 MG in SODIUM CHLORIDE 0.9% 100ML 100 ML IV SCH ×3 (02:04→13:28)
[2017-08-14] MEDS: METHYLPREDNISOLONE IV 60 MG in SYRINGE 0 ML IV SCH ×2 (02:05→13:27)
[2017-08-14] MEDS: ZOLPIDEM TARTRATE 5 MG TAB PO SCH ×2 (02:06→23:27)
[2017-08-14 05:22] LABS: BASO % 0.1 %; BASO ABS # 0.01 K/uL (0-0.2); COMPLETE YES; HEMATOCRIT 32.5 % (37-47); IG% 1.3 %; LYMPH % 9.2 %; LYMPH ABS # 0.94 K/uL (1.2-3.4); MEAN CELL VOLUME 96.7 fL (80-100); MEAN CORPUSCULAR HEMOGLOBIN 32.1 pg (25-34); MEAN CORPUSCULAR HGB CONC 33.2 g/dl (32-36); MEAN PLATELET VOLUME 10.4 fL (7.4-10.4); MONO % 5.6 %; NEUT % 83.8 %; PLATELET COUNT 212 K/uL (130-400); RED BLOOD COUNT 3.36 M/uL (4.2-5.4); WHITE BLOOD COUNT 10.17 K/uL (4.8-10.8)
[2017-08-14 05:48] LABS: BUN/CREATININE RATIO 31.1 (10-20); CALCIUM 8.8 mg/dl (8.5-10.1); CREATININE 1.24 mg/dl (0.60-1.20); POTASSIUM 3.9 mmol/L (3.5-5.1)
[2017-08-14 05:50] LABS: ALB/GLOB RATIO 0.7 (0.9-2)
[2017-08-14] MEDS: ALBUT/IPRATROP 3MG/0.5MG NEB 3 ML VIAL INH SCH ×4 (06:56→18:43)
--- NOTE | 2017-08-14 07:29 | Family Medicine Progress Note ---
Progress Note Date of Service Aug 14, 2017. Subjective Pt evaluation today including: conversation w/ patient, physical exam, chart review, lab review The patient was seen and examined at bedside. No acute overnight events. Off oxygen. Ramirez is in place. Patient has no complaints. Eating well. Plan of care was described to the patient and all questions were answered. ROS: Unsure how reliable due to pt's baseline medical condition. Constitutional: No fever, No chills ENT: No hearing loss Respiratory: No cough, No sputum Abdomen: No pain, No nausea, No vomiting, No diarrhea Female : No dysuria Skin: No rash CV: No chest pain, no edema. Objective Physical Exam Notes: General Appearance: WD/WN, no apparent distress Eyes: PERRL Neck: supple, no adenopathy Respiratory/Chest: chest non-tender, no respiratory distress, no accessory muscle use, + pertinent finding (CTA posteriorly - much improved) Cardiovascular: regular rate, rhythm, no edema, no gallop, no JVD, no murmur Abdomen: + pertinent finding (slight gaurding appreciated, ) Extremities: normal range of motion, non-tender, normal inspection, no pedal edema, no calf tenderness Neurologic/Psychiatric: no motor/sensory deficits, alert, normal mood/affect, + pertinent finding (oriented to month, place, person, city, hometown - much better than yesterday - she is able to name objects in the room without difficulty and she remembers meeting me, she did however forget that she had a ramirez in place). Skin: no rash Assessment and Plan 72F with a PMHx of COPD 2/2 to smoking, AAA, CAD s/p CABG, GERD, PUD, found unresponsive at home by daughter, was transferred from [place] due to bed availability. On admission WBC and Lactate (2.5) were elevated. We are treated CAP/COPD exacerbation with Azithromycin, Rocephin and IV Solumedrol 80mg TID. Upon CT review that was a concern for proctatitis and we expanded Abx coverage to include anaerobes. Patient improved quickly thereafter. Unclear whether the underlying pathology was lungs or GI or urine. Blood cultures are negative thus far (Called [place] and the were also negative there). Patient appears to be at her mental status baseline and we are weaning to PO. Sepsis secondary to CAP in setting of COPD vs Colitis seen on CT vs Strep species in urine. Resp: Weaned to room air, lungs sound much better. s/p 4 Days of Rocephin, Day 4 of IV azithromycin to cover atypicals, changing to PO for a total 5 day course. Got one day of Unasyn, switching to Augmenting, Day #2 of coverage of Anaerobes. Will start PO Prednisone tomorrow from SoluMedrol to 60mg IV BID. c/w Advair and Duonebs Colitis Pt is having soft BM in hospital, digital rectal was not terribly painful. Augmentin as above. UTI Strep Species growing, sensitivities pending. Augmentin as above. Dementia (improving but there is likely an element at baseline) The nurse spoke with the daughter. Pt lives with daughter and per daughter the patient is very forgetful. B12 and Folate WNL Ammonia WNL CT Head WNL. Follow up Vit B1. HTN Definitely a component of Prednisone making things worse. Increased Lisinopril 10mg Daily to BID, will continue. c/w Toprol 25mg BID Primary Prevention c/w ASA daily Acute kidney failure Creatinine 1.24 today, encourage PO hydration. Chronic insomnia w/Ambien use Reviewed PDMP - pt has been getting Ambien 10mg to take daily for a while, as well as Percocet 10-325 Will continue Ambien 5mg qHS Fusiform abdominal aortic aneurysm Stable, continue to monitor Mood c/w Paxil VTE Lovenox SQ daily. Dispo: MED SUR[facility], ordered PT and OT, will need placement most likely. Shruthi : (home ) [phone], (cell) [phone] (attempted to reach Shruthi on 08/13/2017 at 11am and there was no answer on either phone) FULL CODE Resident Physician Supervision Note: I was present with PGY2 Dr. Christopher Brito during the history and exam. I discussed the case with the resident and agree with the findings and plan as documented in the note. Any exceptions or clarifications are listed here: none. Pt sitting in chair by window and was awake/alert. Thought she was in [place] and didn't know the day of the week. however, she knew it was [place] tomorrow. staff report her mentation is much improved and she is feeding herself. VSS;no fever o2 sats stable in RA gen - NAD neck - no JVD mouth - MMM heart - RRR, s1, s2, 2/6 MIGUEL LSB lungs - wheezes resolved, minimal rales bases abd - soft, NT, ND, BS+ ext - no edema A/P: 1. sepsis 2nd to pneumonia - sepsis resolved; pneumonia improved. Cont abx for pneumonia - augmentin PO. complete 10 days in total. finish 5-days of zithromax for atypical coverage 2. metabolic encephalopathy 2nd to #1 - improved. Nearing baseline? Suspect UTI may have played a role. Cannot exclude toxic component from meds she took at home. 3. acute kidney injury 2nd to #1 - resolved 4. COPD w/ exacerbation - resolved; wean steroids 5. abdominal pain - resolved; was likely due to constipation; Dr. Brito performed DONNA - no further impaction 6. AAA - stable, no rupture or dissection 7. suspect baseline dementia - would need to talk with daughter about baseline mental status 8. strep UTI - augmentin, await final cx results d/c ashley PT, OT kimberly recommending rehab likely at [facility] Documented By: Suresh Vincent MD Resident Involvement: Resident Care Provided Care Provided: Adult [facility]
[2017-08-14] MEDS: FLUTICASONE/SALMETEROL 100/50 (ADVAIR) 14 PUFF/1 INHALER INH SCH ×2 (07:39→20:11)
[2017-08-14] MEDS: PAROXETINE 20 MG TAB PO SCH (07:40)
[2017-08-14] MEDS: GABAPENTIN 400 MG CAP PO SCH ×4 (07:40→20:12)
[2017-08-14] MEDS: ASPIRIN 81 MG ECTAB PO SCH (07:40)
[2017-08-14] MEDS: SIMVASTATIN 20 MG TAB PO SCH (07:41)
[2017-08-14] MEDS: METOPROLOL SUCC 25MG EXT REL TAB PO SCH (07:41)
[2017-08-14] MEDS: PANTOprazole SOD 40 MG TAB PO SCH (07:41)
[2017-08-14] MEDS: ENOXAPARIN 40 MG/0.4 ML SYR SQ SCH (07:42)
[2017-08-14] MEDS: LISINOPRIL 10 MG TAB PO SCH ×2 (07:42→20:11)
[2017-08-14] MEDS: AZITHROMYCIN IV 250 MG in DEXTROSE 5% 250ML 250 ML IV SCH (08:25)
[2017-08-14] MEDS: AMOXICILLIN/CLAVULANATE TAB 875 MG TAB PO SCH (18:00)
[2017-08-15] VITALS (8 sets, daily range): BP systolic 162–215; BP diastolic 76–96; PULSE 62–78; TEMP 36.7–36.9; O2SAT 92–96
[2017-08-15] MEDS: ALBUT/IPRATROP 3MG/0.5MG NEB 3 ML VIAL INH SCH ×4 (07:12→18:56)
[2017-08-15 07:26] LABS: CALCIUM 8.6 mg/dl (8.5-10.1); CREATININE 1.15 mg/dl (0.60-1.20); POTASSIUM 3.8 mmol/L (3.5-5.1)
[2017-08-15] MEDS: FLUTICASONE/SALMETEROL 100/50 (ADVAIR) 14 PUFF/1 INHALER INH SCH ×2 (07:35→22:00)
[2017-08-15] MEDS: ASPIRIN 81 MG ECTAB PO SCH (07:47)
[2017-08-15] MEDS: AMOXICILLIN/CLAVULANATE TAB 875 MG TAB PO SCH ×2 (07:47→16:51)
[2017-08-15] MEDS: LISINOPRIL 10 MG TAB PO SCH ×2 (07:48→22:01)
[2017-08-15] MEDS: METOPROLOL SUCC 25MG EXT REL TAB PO SCH (07:48)
[2017-08-15] MEDS: PANTOprazole SOD 40 MG TAB PO SCH (07:48)
[2017-08-15] MEDS: PAROXETINE 20 MG TAB PO SCH (07:48)
[2017-08-15] MEDS: GABAPENTIN 400 MG CAP PO SCH ×4 (07:48→22:01)
[2017-08-15] MEDS: AZITHROMYCIN 250 MG TAB PO SCH (07:49)
[2017-08-15] MEDS: SIMVASTATIN 20 MG TAB PO SCH (07:49)
[2017-08-15] MEDS: ENOXAPARIN 40 MG/0.4 ML SYR SQ SCH (07:53)
[2017-08-15 08:02] LABS: BASO % 0.4 %; BASO ABS # 0.03 K/uL (0-0.2); HEMATOCRIT 31.4 % (37-47); IG% 2.2 %; LYMPH % 24.2 %; LYMPH ABS # 2.01 K/uL (1.2-3.4); MEAN CELL VOLUME 95.2 fL (80-100); MEAN CORPUSCULAR HEMOGLOBIN 31.8 pg (25-34); MEAN PLATELET VOLUME 10.5 fL (7.4-10.4); MONO % 13.5 %; NEUT % 59.7 %; PLATELET COUNT 187 K/uL (130-400); WHITE BLOOD COUNT 8.29 K/uL (4.8-10.8)
[2017-08-15 08:03] LABS: COMPLETE YES; MEAN CORPUSCULAR HGB CONC 33.4 g/dl (32-36)
--- NOTE | 2017-08-15 13:30 | Family Medicine Progress Note ---
Progress Note Date of Service Aug 15, 2017. Subjective Pt evaluation today including: conversation w/ patient, physical exam, chart review, lab review, review of studies, review of inpatient medication list Pain: denies PO Intake: adequate Voiding: no voiding problems No acute events overnight. productive cough persists denies CP, SOB. + bowel movements. Constitutional: No fever, No chills, No weakness Respiratory: + cough, + sputum, No wheezing, No shortness of breath Cardiovascular: No chest pain, No edema, No palpitations Abdomen: No pain, No nausea, No vomiting, No diarrhea, No constipation Female : No dysuria, No urinary frequency Skin: No rash, No itch Medications Current Inpatient Medications Medications (Trade) Dose Ordered Sig/Farhana Route Start Time Stop Time Status Last Admin Dose Admin Sodium Chloride 1,000 ml @ 75 mls/hr [id number] IV 08/11/17 06:00 09/10/17 05:59 Future Hold 08/11/17 06:26 75 MLS/HR Acetaminophen (Tylenol Tab) 650 mg Q4H PRN PO 08/11/17 05:30 09/10/17 05:29 08/11/17 07:32 650 MG Al Hydrox/Mg Hydrox/Simethicone (Maalox Max Susp) 15 ml Q4H PRN PO 08/11/17 05:30 09/10/17 05:29 Magnesium Hydroxide (Milk Of Magnesia Susp) 30 ml Q12H PRN PO 08/11/17 05:30 09/10/17 05:29 Ondansetron HCl (Zofran Inj) 4 mg Q6H PRN IV 08/11/17 05:30 09/10/17 05:29 Nitroglycerin (Nitrostat Tab) 0.4 mg UD PRN SL 08/11/17 05:30 09/10/17 05:29 Polyethylene (Miralax Powder Packet) 17 gm DAILY PRN PO 08/11/17 05:30 09/10/17 05:29 Albuterol/ Ipratropium (Duoneb) 3 ml QIDR INH 08/11/17 08:00 09/10/17 07:59 08/15/17 11:11 3 ML Aspirin (Ecotrin Tab) 81 mg DAILY PO 08/11/17 09:00 09/10/17 08:59 08/15/17 07:47 81 MG Salmeterol Xinafoate/ Fluticasone (Advair Diskus 100/50 Inh) 2 puff BID INH 08/11/17 09:00 09/10/17 08:59 08/15/17 07:35 2 PUFF Gabapentin (Neurontin Cap) 400 mg QID PO 08/11/17 09:00 09/10/17 08:59 08/15/17 11:53 400 MG Metoprolol Succinate (Toprol Xl Tab) 25 mg DAILY PO 08/11/17 09:00 09/10/17 08:59 08/15/17 07:48 25 MG Paroxetine HCl (pAXil TAB) 60 mg DAILY PO 08/11/17 09:00 09/10/17 08:59 08/15/17 07:48 60 MG Simvastatin (Zocor Tab) 20 mg DAILY PO 08/11/17 09:00 09/10/17 08:59 08/15/17 07:49 20 MG Pantoprazole Sodium (Protonix Tab) 40 mg QAM PO 08/11/17 09:00 09/10/17 08:59 08/15/17 07:48 40 MG Enoxaparin Sodium (Lovenox Inj) 40 mg QAM SQ 08/11/17 09:00 09/10/17 08:59 08/15/17 07:53 40 MG Zolpidem Tartrate (Ambien Tab) 5 mg HS PO 08/12/17 21:00 09/11/17 20:59 08/14/17 23:27 5 MG Prednisone (PredniSONE TAB) 60 mg DAILY PO 08/15/17 08:00 09/14/17 07:59 08/15/17 07:48 60 MG Amoxicillin/ Clavulanate Potassium (Augmentin Tab) 875 mg BIDM PO 08/14/17 17:00 08/24/17 16:59 08/15/17 07:47 875 MG Azithromycin (Zithromax Tab) 250 mg QAM PO 08/15/17 08:00 08/16/17 08:01 08/15/17 07:49 250 MG Lisinopril (Zestril Tab) 20 mg BID PO 08/15/17 20:00 09/10/17 08:59 Objective Vital Signs Date Time Temp Pulse Resp B/P (MAP) Pulse Ox O2 Delivery O2 Flow Rate FiO2 08/15/17 11:12 63 16 94 Room Air 08/15/17 10:48 63 180/84 (116) 08/15/17 07:45 Room Air 08/15/17 07:34 62 177/76 (109) 08/15/17 07:25 36.9 63 18 215/96 (135) 95 08/15/17 07:12 75 18 92 Room Air 08/14/17 23:20 Room Air 08/14/17 23:07 36.8 63 18 155/73 (100) 95 Room Air 08/14/17 18:43 72 18 87 Room Air 08/14/17 16:08 93 Room Air 08/14/17 15:51 37.1 70 18 152/75 (100) 93 Room Air 08/14/17 14:27 68 16 97 Room Air Physical Exam Notes: GENERAL: Alert, NAD OROPHARYNX: no exudate, no erythema, lips, buccal mucosa, and tongue normal and mucous membranes are moist NECK: supple, no nuchal rigidity, no adenopathy, non-tender LUNGS:Bilateral rhonchi. Normal chest wall mechanics HEART: no murmurs, S1 normal and S2 normal ABDOMEN: abdomen soft, non-tender, normo-active bowel sounds, no masses, no rebound or guarding. UPPER EXTREMITIES: upper extremities are grossly normal. LOWER EXTREMITIES: No pitting edema. NEURO EXAM: AOX1 ( Person only), cranial nerves II-XII grossly intact, normal speech, Laboratory Results Results Past 24 Hours Test 08/15/17 06:41 08/15/17 06:57 Range/Units Sodium Level 138 136-145 mmol/L Potassium Level 3.8 3.5-5.1 mmol/L Chloride Level 106 98-107 mmol/L Carbon Dioxide Level 27 21-32 mmol/L Anion Gap 5.0 3-11 mmol/L Blood Urea Nitrogen 32 7-18 mg/dl Creatinine 1.15 0.60-1.20 mg/dl Est Creatinine Clear Calc Drug Dose 40.2 ml/min Estimated GFR () 54.7 Estimated GFR (Non- 47.2 BUN/Creatinine Ratio 28.0 10-20 Random Glucose 97 70-99 mg/dl Calcium Level 8.6 8.5-10.1 mg/dl White Blood Count 8.29 4.8-10.8 K/uL Red Blood Count 3.30 4.2-5.4 M/uL Hemoglobin 10.5 12.0-16.0 g/dL Hematocrit 31.4 37-47 % Mean Corpuscular Volume 95.2 80-100 fL Mean Corpuscular Hemoglobin 31.8 25-34 pg Mean Corpuscular Hemoglobin Concent 33.4 32-36 g/dl Platelet Count 187 130-400 K/uL Mean Platelet Volume 10.5 7.4-10.4 fL Neutrophils (%) (Auto) 59.7 % Lymphocytes (%) (Auto) 24.2 % Monocytes (%) (Auto) 13.5 % Eosinophils (%) (Auto) 0.0 % Basophils (%) (Auto) 0.4 % Neutrophils # (Auto) 4.95 1.4-6.5 K/uL Lymphocytes # (Auto) 2.01 1.2-3.4 K/uL Monocytes # (Auto) 1.12 0.11-0.59 K/uL Eosinophils # (Auto) 0.00 0-0.5 K/uL Basophils # (Auto) 0.03 0-0.2 K/uL RDW Standard Deviation 47.7 36.4-46.3 fL RDW Coefficient of Variation 13.6 11.5-14.5 % Immature Granulocyte % (Auto) 2.2 % Immature Granulocyte # (Auto) 0.18 0.00-0.02 K/uL Microbiology Results 08/14/17 Gram Stain - Final, Resulted 08/14/17 Sputum Culture, Resulted Pending Assessment and Plan 72 yo F w/ h/o COPD, CAD , GERD, PUD Dementia, p/w metabolic encephalopathy / sepsis in the setting of Pneumonia , found to have UTI with Positive cx for Strep sp. Sepsis in the setting of Pneumonia, COPD exacerbation * Sepsis s/p resolution * Pneumonia: Sputum Cx pending, Gram stain showing only Poly's * Day 5/5 Azithromycin, Day 3 Augmentin ( Complete total of 10 day course) * Continue Prednisone 60 mg daily, Taper on Discharge Dementia * Acute Encephalopathy improved * Closer to Baseline mental status UTI * Urine cx: VRE, however, showing clinical improvement, contamination considered * Repeat UA 08/15 unremarkable * F/u Urine cx * Continue Augmentin as above HTN * inadequately controlled BP * Increased Lisinopril to 20 mg BID UMER * Cr 1.15 AAA * stable * continue to monitor Depression/Anxiety * Continue Paxil DVT Prophylaxis * Lovenox Disposition * awaiting authorization to return to [facility] Resident Physician Supervision Note: I was present with PGY2 Dr. Yevgeniy Esqueda during the history and exam. I discussed the case with the resident and agree with the findings and plan as documented in the note. Any exceptions or clarifications are listed here: none. Pt asks when she will be discharged. Has mild cough but otherwise feels good. Appetite has improved nicely. VSS no fever o2 sats in room air normal gen - NAD neck - no JVD mouth - MMM heart - RRR, s1, s2, 2/6 MIGUEL LSB lungs - mild rales right base, scant end-exp wheeze b/l abd - soft, NT, ND, BS+ ext - no edema A/P: 1. sepsis 2nd to pneumonia - improved/resolved. Cont abx for pneumonia - augmentin PO. complete 10 days in total. today is day 5 of zithromax; can d/c after today. 2. metabolic encephalopathy 2nd to #1 - improved/resolved. For the last 2 days or so she has been awake, alert. She has mild confusion but suspect some element of mild cognitive impairment or dementia. 3. acute kidney injury 2nd to #1 - resolved 4. COPD w/ exacerbation - resolved; wean steroids 5. VRE in urine - her urine cx grew VRE. She has NOT had any daptomycin or other abx that would have covered this appropriately. Despite not being on the right abx for such she has made clinical improvement in all respects. Agree we should simply repeat the u/a and urine cx. If repeat urinalysis and culture are negative then would NOT treat the VRE. 6. AAA - stable, no rupture or dissection 7. suspected baseline dementia PT, OT evals recommending rehab likely at [facility] - can d/c on [facility] if insurance auth has been obtained Documented By: Suresh Vincent MD Continued [facility] stay due to: abnormal vital signs Discharge planning: retirement facility Resident Tracking Resident Involvement: Resident Care Provided Care Provided: Adult Hospital Medicine
[2017-08-15 14:50] LABS: URINE APPEARANCE CLEAR (CLEAR); URINE BILIRUBIN NEG (NEG); URINE COLOR YELLOW; URINE NITRITE NEG (NEG); URINE SPECIFIC GRAVITY 1.019 (1.000-1.030); UROBILINOGEN NEG (NEG); ZZURINE CULT IF INDIC CATH NO
[2017-08-15 14:52] LABS: MANUAL MICROSCOPIC REQUIRED? NO; REVIEW REQ? NO
[2017-08-15] MEDS: ZOLPIDEM TARTRATE 5 MG TAB PO SCH (22:00)
[2017-08-16] VITALS (8 sets, daily range): BP systolic 75–198; BP diastolic 65–74; PULSE 59–64; TEMP 36.5–37.1; O2SAT 92–100
[2017-08-16 07:05] LABS: BASO % 0.2 %; BASO ABS # 0.02 K/uL (0-0.2); COMPLETE YES; EOS % 0.4 %; HEMATOCRIT 33.8 % (37-47); IG% 4.5 %; LYMPH % 30.7 %; LYMPH ABS # 3.29 K/uL (1.2-3.4); MEAN CELL VOLUME 95.8 fL (80-100); MEAN CORPUSCULAR HGB CONC 33.4 g/dl (32-36); MEAN PLATELET VOLUME 10.4 fL (7.4-10.4); MONO % 11.9 %; NEUT % 52.3 %; PLATELET COUNT 187 K/uL (130-400); RED BLOOD COUNT 3.53 M/uL (4.2-5.4)
[2017-08-16] MEDS: ALBUT/IPRATROP 3MG/0.5MG NEB 3 ML VIAL INH SCH ×4 (07:13→19:06)
[2017-08-16 07:45] LABS: BUN/CREATININE RATIO 25.5 (10-20); CALCIUM 8.4 mg/dl (8.5-10.1); CREATININE 0.99 mg/dl (0.60-1.20); POTASSIUM 3.7 mmol/L (3.5-5.1)
--- NOTE | 2017-08-16 08:45 | Family Medicine Progress Note ---
Progress Note Date of Service Aug 16, 2017. Subjective Pt evaluation today including: conversation w/ patient, conversation w/ family , physical exam, chart review, lab review, review of studies, review of inpatient medication list Pain: denies PO Intake: adequate Voiding: no voiding problems No acute events overnight. Per Nursing, Mental status improved, near baseline. No Fever, chills, Chest pain, SOB. + mild cough Constitutional: No fever, No chills, No weakness Respiratory: + cough, No wheezing, No shortness of breath Cardiovascular: No chest pain, No edema, No palpitations Abdomen: No pain, No nausea, No vomiting, No diarrhea, No constipation Skin: No rash, No itch Medications Current Inpatient Medications Medications (Trade) Dose Ordered Sig/Farhana Route Start Time Stop Time Status Last Admin Dose Admin Sodium Chloride 1,000 ml @ 75 mls/hr [id number] IV 08/11/17 06:00 09/10/17 05:59 Future Hold 08/11/17 06:26 75 MLS/HR Acetaminophen (Tylenol Tab) 650 mg Q4H PRN PO 08/11/17 05:30 09/10/17 05:29 08/11/17 07:32 650 MG Al Hydrox/Mg Hydrox/Simethicone (Maalox Max Susp) 15 ml Q4H PRN PO 08/11/17 05:30 09/10/17 05:29 Magnesium Hydroxide (Milk Of Magnesia Susp) 30 ml Q12H PRN PO 08/11/17 05:30 09/10/17 05:29 Ondansetron HCl (Zofran Inj) 4 mg Q6H PRN IV 08/11/17 05:30 09/10/17 05:29 Nitroglycerin (Nitrostat Tab) 0.4 mg UD PRN SL 08/11/17 05:30 09/10/17 05:29 Polyethylene (Miralax Powder Packet) 17 gm DAILY PRN PO 08/11/17 05:30 09/10/17 05:29 Albuterol/ Ipratropium (Duoneb) 3 ml QIDR INH 08/11/17 08:00 09/10/17 07:59 08/16/17 07:13 3 ML Aspirin (Ecotrin Tab) 81 mg DAILY PO 08/11/17 09:00 09/10/17 08:59 08/15/17 07:47 81 MG Salmeterol Xinafoate/ Fluticasone (Advair Diskus 100/50 Inh) 2 puff BID INH 08/11/17 09:00 09/10/17 08:59 08/15/17 22:00 2 PUFF Gabapentin (Neurontin Cap) 400 mg QID PO 08/11/17 09:00 09/10/17 08:59 08/15/17 22:01 400 MG Metoprolol Succinate (Toprol Xl Tab) 25 mg DAILY PO 08/11/17 09:00 09/10/17 08:59 08/15/17 07:48 25 MG Paroxetine HCl (pAXil TAB) 60 mg DAILY PO 08/11/17 09:00 09/10/17 08:59 08/15/17 07:48 60 MG Simvastatin (Zocor Tab) 20 mg DAILY PO 08/11/17 09:00 09/10/17 08:59 08/15/17 07:49 20 MG Pantoprazole Sodium (Protonix Tab) 40 mg QAM PO 08/11/17 09:00 09/10/17 08:59 08/15/17 07:48 40 MG Enoxaparin Sodium (Lovenox Inj) 40 mg QAM SQ 08/11/17 09:00 09/10/17 08:59 08/15/17 07:53 40 MG Zolpidem Tartrate (Ambien Tab) 5 mg HS PO 08/12/17 21:00 09/11/17 20:59 08/15/17 22:00 5 MG Prednisone (PredniSONE TAB) 60 mg DAILY PO 08/15/17 08:00 09/14/17 07:59 08/15/17 07:48 60 MG Amoxicillin/ Clavulanate Potassium (Augmentin Tab) 875 mg BIDM PO 08/14/17 17:00 08/24/17 16:59 08/15/17 16:51 875 MG Lisinopril (Zestril Tab) 20 mg BID PO 08/15/17 20:00 09/10/17 08:59 08/15/17 22:01 20 MG Objective Vital Signs Date Time Temp Pulse Resp B/P (MAP) Pulse Ox O2 Delivery O2 Flow Rate FiO2 08/16/17 08:36 36.7 60 20 198/65 (109) 100 08/16/17 07:16 59 16 94 Room Air 08/16/17 00:23 36.5 18 175/72 (106) 93 Room Air 08/16/17 00:15 Room Air 08/15/17 18:57 78 16 95 Room Air 08/15/17 16:01 36.7 65 20 162/88 (112) 94 Room Air 08/15/17 16:00 Room Air 08/15/17 15:02 77 16 96 Room Air 08/15/17 11:12 63 16 94 Room Air 08/15/17 10:48 63 180/84 (116) Physical Exam Notes: GENERAL: Alert, NAD NECK: supple, no nuchal rigidity, no adenopathy, non-tender LUNGS:Bilateral rhonchi. Normal chest wall mechanics HEART: no murmurs, S1 normal and S2 normal ABDOMEN: abdomen soft, non-tender, normo-active bowel sounds, no masses, no rebound or guarding. UPPER EXTREMITIES: upper extremities are grossly normal. LOWER EXTREMITIES: No pitting edema. NEURO EXAM: AOX2, cranial nerves II-XII grossly intact, normal speech Laboratory Results Results Past 24 Hours Test 08/16/17 06:50 Range/Units White Blood Count 10.70 4.8-10.8 K/uL Red Blood Count 3.53 4.2-5.4 M/uL Hemoglobin 11.3 12.0-16.0 g/dL Hematocrit 33.8 37-47 % Mean Corpuscular Volume 95.8 80-100 fL Mean Corpuscular Hemoglobin 32.0 25-34 pg Mean Corpuscular Hemoglobin Concent 33.4 32-36 g/dl Platelet Count 187 130-400 K/uL Mean Platelet Volume 10.4 7.4-10.4 fL Neutrophils (%) (Auto) 52.3 % Lymphocytes (%) (Auto) 30.7 % Monocytes (%) (Auto) 11.9 % Eosinophils (%) (Auto) 0.4 % Basophils (%) (Auto) 0.2 % Neutrophils # (Auto) 5.60 1.4-6.5 K/uL Lymphocytes # (Auto) 3.29 1.2-3.4 K/uL Monocytes # (Auto) 1.27 0.11-0.59 K/uL Eosinophils # (Auto) 0.04 0-0.5 K/uL Basophils # (Auto) 0.02 0-0.2 K/uL RDW Standard Deviation 47.7 36.4-46.3 fL RDW Coefficient of Variation 13.7 11.5-14.5 % Immature Granulocyte % (Auto) 4.5 % Immature Granulocyte # (Auto) 0.48 0.00-0.02 K/uL Sodium Level 140 136-145 mmol/L Potassium Level 3.7 3.5-5.1 mmol/L Chloride Level 106 98-107 mmol/L Carbon Dioxide Level 26 21-32 mmol/L Anion Gap 8.0 3-11 mmol/L Blood Urea Nitrogen 25 7-18 mg/dl Creatinine 0.99 0.60-1.20 mg/dl Est Creatinine Clear Calc Drug Dose 46.7 ml/min Estimated GFR () 65.5 Estimated GFR (Non- 56.5 BUN/Creatinine Ratio 25.5 10-20 Random Glucose 79 70-99 mg/dl Calcium Level 8.4 8.5-10.1 mg/dl Assessment and Plan 72 yo F w/ h/o COPD, CAD , GERD, PUD, Dementia, p/w metabolic encephalopathy / sepsis in the setting of Pneumonia , found to have UTI with Positive cx for VRE Sepsis in the setting of Pneumonia, COPD exacerbation * Sepsis s/p resolution * Pneumonia: Sputum Cx pending, Gram stain showing only Poly's * Day 3 Augmentin ( Complete total of 10 day course), s/p completion 5 days Azithromycin * Continue Prednisone 60 mg daily, Taper on Discharge Dementia/Encephalopathy * Acute Encephalopathy improved * Closer to Baseline mental status UTI * Urine cx: VRE isolated, however, had no abx coverage for this during hospitalization, remains asymptomatic, showing clinical improvement, contamination considered * Repeat UA 08/15 unremarkable * Continue Augmentin as above * D/C ramirez, HTN * inadequately controlled BP * Increased Lisinopril to 20 mg BID UMER * Cr 1.15 -->.99 * Continue to monitor BMPs AAA * stable, no evidence of rupture/dissection * continue to monitor Depression/Anxiety * Continue Paxil DVT Prophylaxis * Lovenox Disposition * awaiting authorization to return to [facility] Resident Physician Supervision Note: I interviewed and examined the patient. Discussed with Dr. Esqueda and agree with findings and plan as documented in the note. Any exceptions or clarifications are listed here: None Documented By: Norm Goldstein feeling better. anticipate SNF tomorrow vitals noted nad breathing unlabored CAP w encephalopathy - improving, abx as above, anticipate snf tomorrow Continued [facility] stay due to: home environment unsafe for pt Discharge planning: [facility] facility Resident Tracking Resident Involvement: Resident Care Provided Care Provided: Adult Hospital Medicine
[2017-08-16] MEDS: FLUTICASONE/SALMETEROL 100/50 (ADVAIR) 14 PUFF/1 INHALER INH SCH ×2 (08:54→20:35)
[2017-08-16] MEDS: ASPIRIN 81 MG ECTAB PO SCH (08:55)
[2017-08-16] MEDS: GABAPENTIN 400 MG CAP PO SCH ×4 (08:55→20:35)
[2017-08-16] MEDS: LISINOPRIL 10 MG TAB PO SCH ×2 (08:55→20:36)
[2017-08-16] MEDS: METOPROLOL SUCC 25MG EXT REL TAB PO SCH (08:56)
[2017-08-16] MEDS: SIMVASTATIN 20 MG TAB PO SCH (08:56)
[2017-08-16] MEDS: PAROXETINE 20 MG TAB PO SCH (08:56)
[2017-08-16] MEDS: PANTOprazole SOD 40 MG TAB PO SCH (08:57)
[2017-08-16] MEDS: AMOXICILLIN/CLAVULANATE TAB 875 MG TAB PO SCH ×2 (08:57→17:54)
[2017-08-16] MEDS: ENOXAPARIN 40 MG/0.4 ML SYR SQ SCH (08:57)
[2017-08-16] MEDS: AZITHROMYCIN 250 MG TAB PO SCH (08:57)
[2017-08-16] MEDS: NYSTATIN SUSP 500,000 U/5 ML UDC PO SCH ×2 (17:55→20:35)
[2017-08-16] MEDS: ZOLPIDEM TARTRATE 5 MG TAB PO SCH (22:00)
[2017-08-17] VITALS (10 sets, daily range): BP systolic 114–196; BP diastolic 65–83; PULSE 60–93; TEMP 36.8–37.3; O2SAT 93–97
[2017-08-17] MEDS ORDERED: NURSING VERBAL MED ORDER ONE ×3 (01:00→04:30)
[2017-08-17] MEDS ORDERED: HydrALAZINE 10 MG TAB PO STA (01:08)
[2017-08-17] MEDS ORDERED: LSN20 PO (06:10)
[2017-08-17] MEDS ORDERED: PRED10TA PO (06:10)
--- NOTE | 2017-08-17 06:25 | Discharge Instructions ---
Discharge Instructions Date of Service Aug 17, 2017. Admission Reason for Admission: Pneumonia,Sirs Discharge Discharge Diagnosis / Problem: Metabolic Encephalopathy, Sepsis Discharge Goals Goal(s): Decrease discomfort, Improve function, Increase independence, Improve disease control, Improve nutritional status, Learn about illness, Diagnostic testing, Therapeutic intervention, Screening, Prevent Disease Progression, Specific goals Activity Recommendations Activity Level: Up Ad Kaylah . Additional Information Patient informed of condition: Yes Advance Directives: No DNR: No Level of Care: Skilled Communicable Disease: Yes Prognosis: Improving Instructions / Follow-Up Instructions / Follow-Up 72 yo F w/ h/o COPD, CAD , GERD, PUD, Dementia, p/w metabolic encephalopathy / sepsis in the setting of Pneumonia , found to have UTI Sepsis in the setting of Pneumonia, COPD exacerbation Sepsis s/p resolution Pneumonia: Sputum Cx showing johnny, likle contamination, Gram stain showing only Poly's Day 6 Augmentin ( Complete total of 10 day course), s/p completion 5 days Azithromycin Continue Prednisone 60 mg daily, Taper on Discharge Dementia/Encephalopathy Acute Encephalopathy improved Closer to Baseline mental status UTI Urine cx: VRE isolated, however, had no abx coverage for this during hospitalization, remains asymptomatic, showing clinical improvement, contamination considered Repeat UA 08/15 unremarkable Continue Augmentin as above D/C'd ramirez, HTN continue to monitor Continue Lisinopril to 20 mg BID UMER resolved Continue to monitor BMPs AAA stable, no evidence of rupture/dissection continue to monitor Depression/Anxiety Continue Paxil DVT Prophylaxis Lovenox Disposition return to [facility] Diet Patient's current hospital diet: AHA Diet (Heart Healthy) Discharge Diet Recommended Diet: AHA Diet (Heart Healthy) Pending Studies Studies pending at discharge: no Medical Emergencies . Who to Call and When: Medical Emergencies: If at any time you feel your situation is an emergency, please call 911 immediately. . Non-Emergent Contact Non-Emergency issues call your: Primary Care Provider Call Non-Emergent contact if: you have a fever, your pain is not controlled, you have any medication questions . . "Provider Documentation" section prepared by Yevgeniy Esqueda. . Core Measure Problem Core Measures: None
[2017-08-17] MEDS ORDERED: AMOX1TAB43 PO (06:27)
[2017-08-17 07:05] LABS: HEMATOCRIT 33.3 % (37-47); MEAN CELL VOLUME 95.7 fL (80-100); MEAN CORPUSCULAR HEMOGLOBIN 31.6 pg (25-34); MEAN PLATELET VOLUME 10.6 fL (7.4-10.4); PLATELET COUNT 184 K/uL (130-400); RED BLOOD COUNT 3.48 M/uL (4.2-5.4); WHITE BLOOD COUNT 9.06 K/uL (4.8-10.8)
[2017-08-17] MEDS: ALBUT/IPRATROP 3MG/0.5MG NEB 3 ML VIAL INH SCH ×3 (07:19→16:00)
[2017-08-17 07:41] LABS: CREATININE 1.05 mg/dl (0.60-1.20)
[2017-08-17] MEDS: FLUTICASONE/SALMETEROL 100/50 (ADVAIR) 14 PUFF/1 INHALER INH SCH (08:59)
[2017-08-17] MEDS: AMOXICILLIN/CLAVULANATE TAB 875 MG TAB PO SCH ×2 (09:00→16:20)
[2017-08-17] MEDS: ASPIRIN 81 MG ECTAB PO SCH (09:00)
[2017-08-17] MEDS: NYSTATIN SUSP 500,000 U/5 ML UDC PO SCH ×3 (09:01→16:20)
[2017-08-17] MEDS: GABAPENTIN 400 MG CAP PO SCH ×3 (09:02→16:20)
[2017-08-17] MEDS: PAROXETINE 20 MG TAB PO SCH (09:02)
[2017-08-17] MEDS: LISINOPRIL 10 MG TAB PO SCH (09:05)
[2017-08-17] MEDS: PANTOprazole SOD 40 MG TAB PO SCH (09:05)
[2017-08-17] MEDS: METOPROLOL SUCC 25MG EXT REL TAB PO SCH (09:05)
[2017-08-17] MEDS: SIMVASTATIN 20 MG TAB PO SCH (09:06)
[2017-08-17] MEDS: ENOXAPARIN 40 MG/0.4 ML SYR SQ SCH (09:07)
--- NOTE | 2017-08-17 11:56 | Family Medicine Progress Note ---
Progress Note Date of Service Aug 17, 2017. Assessment and Plan Resident Physician Supervision Note: I interviewed and examined the patient. Discussed with Dr. Tong and agree with findings and plan as documented in the note. Any exceptions or clarifications are listed here: None Documented By: Norm Goldstein feeling ok ready to go to snf nad breathing unlabored no pallor or icterus pneumonia w encephalopathy - improved. for SNF. please see dr tong's discharge summary as well
--- NOTE | 2017-08-21 23:37 | Discharge Summary ---
Discharge Summary Date of Service Aug 17, 2017. Discharge Summary Admission Date: Aug 11, 2017 at 04:59 Discharge Date: Aug 17, 2017 Discharge Disposition: long term facility Principal Diagnosis: Pneumonia, Sepsis Procedures: CHEST ONE VIEW PORTABLE CLINICAL HISTORY: dyspnea COMPARISON STUDY: No previous studies for comparison. FINDINGS: There are postsurgical changes of a midline sternotomy. As a left subclavian dual-chamber central venous pacemaker present. There is diffuse elevation of the interstitium. While likely secondary to pulmonary vascular congestion, chronic interstitial lung disease or an acute interstitial inflammatory process could appear similar.[ IMPRESSION: 1. Diffuse elevation of the interstitium. Clinical correlation in regards to congestive failure is recommended. ] HEAD CT NONCONTRAST CT DOSE: 537.48 mGy.cm HISTORY: Not oriented to person place or time, baseline is normal TECHNIQUE: Multiaxial CT images of the head were performed without the use of intravenous contrast. Automated exposure control was utilized for this study. A dose lowering technique was utilized adhering to the principles of ALARA. Comparison: None. Findings: The paranasal sinuses and mastoid air cells are clear. The calvarium and skull base are intact. There is no mass, hematoma, midline shift, acute infarct. White matter hypodensity is nonspecific but suggestive of microvascular ischemic change. The ventricles and sulci demonstrate mild age-related involutional changes. ANGIO ABD/PELVIS WITH CONTRAST CLINICAL HISTORY: 72 years-old Female presents with acute generalized abdominal pain and back pain. Concern for possible abdominal aortic aneurysm. COMPARISON STUDY: Chest radiograph of same day TECHNIQUE: Following the IV administration of 93 cc of Optiray 320, CT angiogram of the abdomen and pelvis was performed from the lung bases the proximal femora. Images are reviewed in the axial, sagittal, and coronal planes. 3-D MIPS images are created and assessed. IV contrast was administered without complication. A dose lowering technique was utilized adhering to the principles of ALARA. CT DOSE: 662.39 mGy.cm FINDINGS: CTA: Moderate multichamber cardiac enlargement. Pacer leads are seen overlying the right atrium and right ventricle. Prior median sternotomy. Extensive coronary arterial disease. Dilation of the main pulmonary artery suggests pulmonary arterial hypertension. The imaged ascending thoracic aorta appears unremarkable. There is tortuosity and moderate mixed plaquing of the descending thoracic aorta. There is extensive mixed plaquing of the abdominal aorta and proximal branch vessels. Fusiform infrarenal abdominal aortic aneurysm measures up to 5.9 x 5.5 cm in AP and transverse dimension for a craniocaudal length of 10.4 cm extending to level of the iliac bifurcation. There is fusiform dilation of the right common iliac artery, 1.9 cm with usual dilation of the left common iliac artery measuring 1.8 cm. No evidence of abdominal aortic aneurysm rupture or dissection. Extensive atherosclerosis of the iliac vasculature is noted with areas of high-grade luminal narrowing involving the left external iliac artery as seen on image 319 series 2. High-grade stenosis involves the right internal iliac artery, image 340 series 2. There is occlusion of the right superficial femoral artery at its origin, image 449 series 2. Imaged common femoral and left superficial femoral arteries are patent. Moderate narrowing involves the imaged left superficial femoral artery secondary to mixed plaquing. There is prominent mixed plaquing at the origin of the celiac trunk and origin of the superior mesenteric artery causing less than 50% stenosis. Extensive atherosclerosis involving the bilateral renal arteries is noted with a right renal arterial stent in place which appears patent. Stenosis at the origin of the left renal artery causes 50% luminal narrowing. Stenosis at the origin of the mesenteric artery appears to be at least 50%. CT ABDOMEN/PELVIS: Multifocal patchy groundglass opacities of the imaged lung bases with a thin-walled cyst of the left lower lobe measuring 3.0 x 2.6 cm. Additional scattered thin-walled cysts are noted throughout the bilateral lungs. No pneumatosis or pneumoperitoneum identified. Prior cholecystectomy. Heterogeneous enhancement of the spleen likely secondary to arterial phase. No perisplenic inflammatory change. Pancreas demonstrates calcifications of the uncinate process suggesting prior pancreatitis. Mild chronic atrophy. Adrenal glands are within normal limits. 2.8 cm low attenuating lesion of the interpolar left kidney suggests renal cyst. There is of probable thinning and scarring noted throughout the left kidney. Nonspecific perinephric stranding. Narvaez catheter is noted within a collapsed or bladder. Uterus is unremarkable. No bulky adenopathy identified. Small sliding-type hiatal hernia. There is no bowel obstruction. Extensive stool burden of the rectum and distal sigmoid with stool ball in the rectal vault measuring up to 8 cm transversely. Mild rectal wall thickening is noted with surrounding inflammatory stranding. There is mild wall thickening of the mid transverse colon circumferentially without significant inflammatory stranding. No evidence of acute appendicitis. Prior ventral abdominal wall herniorrhaphy with diastases recti. Mild diffuse body wall edema. The bones appear mildly demineralized. Multilevel degenerative changes of the spine. IMPRESSION: 1. Fusiform aneurysmal dilation of the infrarenal abdominal aorta measures up to 5.9 x 5.5 cm for a craniocaudal length of 10.4 cm extending to level of the iliac bifurcation. Mild fusiform dilation also involves the bilateral common iliac arteries. No evidence of aneurysm rupture or dissection. 2. Extensive atherosclerosis as above with occlusion at the origin of the right superficial femoral artery. Areas of high-grade luminal narrowing are seen within the left external iliac and right internal iliac arteries. 3. Patent right renal arterial stent graft. 50% luminal narrowing of the proximal left renal artery secondary to atheromatous plaquing. 4. Cardiomegaly with patchy groundglass opacities of the lung bases suggesting alveolar pulmonary edema and/or pneumonitis. 5. Fecal impaction with large stool ball in the rectal vault. Rectal wall thickening with surrounding inflammatory stranding suggests stercoral proctitis. Wall thickening of the mid transverse colon suspicious for possible mild colitis. 6. Suggested pulmonary arterial hypertension. 7. Additional findings as above. Medication Reconciliation New Medications: Amoxicillin & Pot Clavulanate (Amoxicillin/Clavulanate P) 1 Tab Tab 875 MG PO BIDM for 4 Days, #8 TAB Lisinopril (Lisinopril) 20 Mg Tab 20 MG PO BID for 30 Days, #60 TABS 2 Refills Prednisone Tab (Prednisone) 10 Mg Tab 10 MG PO DIRECTED, #45 TAB Day 1-3: Take 5 pills/day Day 4-6: Take 4 pills/day Day 7-9: Take 3 pills/day Day 10-12: Take 2 pills/day Day 13-15: Take 1 pill/day Continued Medications: Albuterol (Ventolin) 4 Mg Tab 4 MG PO, TAB Albuterol Hfa (Ventolin Hfa) 200 Puffs/26664 Mcg Aers 2-4 PUFFS INH Q6H, #1 INHALER Aspirin (Aspirin 81) 81 Mg Tab DAILY Nsjlavr-Elwfqnpzslamf-Vwnelznx (Excedrin Migraine) 1 Tab Tab Fluticasone Prop/Salmeterol (Advair Diskus 100/50 60 Dose) 1 Ea Aerp 1 PUFFS INH BID for 30 Days, #1 INHALER 5 Refills Gabapentin (Neurontin) 400 Mg Cap 400 MG PO QID, CAP Lansoprazole (Prevacid) 30 Mg Capcr 30 MG PO DAILY, CAP Metoprolol Succ (Toprol Xl) (Toprol-Xl) 25 Mg Tabcr 25 MG PO DAILY, #30 TAB Paroxetine (Paxil) 40 Mg Tab 60 MG PO DAILY, TAB Simvastatin (Zocor) 20 Mg Tab 1 TAB PO DAILY for 90 Days, #90 TAB 3 Refills Zolpidem Tartrate (Zolpidem Tartrate) 10 Mg Tab 1 TAB PO HS PRN for Sleep for 30 Days, #30 TAB 2 Refills Discontinued Medications: Lisinopril (Prinivil) 10 Mg Tab 10 MG PO, TAB Discharge Exam Review of Systems: Constitutional: + weakness, No sweats, No weight loss Respiratory: No sputum, No shortness of breath Cardiovascular: No chest pain, No edema Abdomen: No pain, No nausea, No vomiting Genitourinary - Male: + hematuria, + dysuria, + urinary urgency Physical Exam: General Appearance: WD/WN, no apparent distress Eyes: normal inspection, PERRL ENT: normal ENT inspection Neck: supple, no adenopathy Respiratory/Chest: chest non-tender, normal breath sounds, + pertinent finding (neena rhonchi) Cardiovascular: regular rate, rhythm, no edema, no murmur Abdomen / GI: normal bowel sounds, non tender, soft Extremities: normal inspection, no calf tenderness, normal capillary refill Neurologic/Psychiatric: alert, normal reflexes, + aphasia Hospital Course This is a 72 y/o F with h/o COPD. AAA, CAD, GERD, PUD who presents as a transfer from [facility] for sepsis 2/2 pneumonia. The patient is unable to provide history as she has waxing and waning levels of consciousness. She is not oriented. Chart review from [facility] reveals that patient presented for Dyspnea vial ALS that started this morning. Has accompanying cough, fever and wheezing. I did speak to the daughter over the phone who provided some history. She did say that her mother was initially complaining that there was something wrong with her heart. She gave her nebulizer treatments and she seemed to do okay for a few hours. By the evening, she found her unresponsive in her room and called ALS. Daughter reports that she takes clonipine. At [facility] she was given naloxone and put on bipap after which she was slightly more responsive but not enough to provide any meaningful history. She was also given IV fluids, Nebulizer treatment, Rocephin. She was transferred to [facility] due to lack of bed availability. Reports that her mother smokes a PPD and has a medical history that includes COPD, AAA, CAD s/p CABG, GERD, PUD etc. Pertinent Blood work at [facility]: WBC- 11.9 normal h/h Lactate - 2.9 Cr - 1.8 GFR 29 normal INR normal U/a Drug screen +'ve for barbiturates Flu negative normal troponin tsh- 1.07 Patient arrived with Altered Mental status, febrile ( 38.1 degrees), HR >90 and was placed on supplemental oxygen A. She had a White ct of 12.36, fulfilling Sepsis criteria. CXR showed increased interstitial markings. Blood cx's neg. She was placed on IV Rocephin, Azithromycin, Duoneb, Advair, IV solumedrol. Echo was performed showing grade II diastolic dysfunction, dilated left Atrium, concentric left ventricular hypertrophy, EF of 60-65%. CT abdomen/pelvis had findings consistent with colitis, proctitis. Abx were later broadened to Unasyn, Azithromycin. Patient was also found to have UA consistent with UTI. Urine cx was positive for Vancomycin resistant enterococcus however by the time cx results came back, patient had showed significant clinical improvement despite lack of coverage for VRE. During hospital stay patient's mental status improved as well as symptoms of pneumonia. Unasyn was switched to Augmentin and IV solumedrol switched to PO Prednisone. She showed clinical improvement during admission. Patient was eventually discharged on a 60 mg Prednisone taper. Resident Physician Supervision Note: I interviewed and examined the patient. Discussed with Dr. Esqueda and agree with findings and plan as documented in the note. Any exceptions or clarifications are listed here: None Documented By: Norm Goldstein feeling better ready to go to SNF vitals noted nad breathing unlabored no pallor or icterus pneumonia/encephalopathy - improved. stable for snf Total Time Spent: Greater than 30 minutes This includes examination of the patient, discharge planning, medication reconciliation, and communication with other providers. Discharge Instructions Please refer to the electronic Patient Visit Report (Discharge Instructions) for additional information.
== END 2017-08-17 17:15 | DRG 871 ==
LOC: EDBD → C.2T 04:59 → ENRESERV 08-12 13:45 → C.MS4W 08-12 14:51
PROVIDERS: ADMIT Internal Medicine; ATTEND Family Medicine
DX: A41.9 Sepsis, unspecified organism (principal); G93.41 Metabolic encephalopathy; J18.9 Pneumonia, unspecified organism; J44.1 Chronic obstructive pulmonary disease with (acute) exacerbation; N17.9 Acute kidney failure, unspecified; I25.10 Atherosclerotic heart disease of native coronary artery without angina pectoris; K21.9 Gastro-esophageal reflux disease without esophagitis; G47.00 Insomnia, unspecified; F17.200 Nicotine dependence, unspecified, uncomplicated; Z79.82 Long term (current) use of aspirin